=== PATIENT | male | born 1955 | race Caucasian/White ===

== ENCOUNTER 2016-04-07 14:55 | Emergency (ER) | payer OTHER ==
[~2016-04-07] VITALS: Ht 185.4 cm; Wt 72.4 kg
[~2016-04-07 14:55] MED LIST: ALPRAZOLAM0.25 M2 PO; AMIODARONE HCL200 MG PO; AMPICILLIN TRI500 MG PO; ASPIR 8181 M1 PO; ASPIR-LOW81 MG PO; ASPIR-TRIN325 M1 PO; ASPIRIN325 MG PO; ASPIRIN81 M1 PO; BACLOFEN20 MG PO; BACTRIM,SEPT1 TABLET PO; BAYER ASPIRIN325 MG PO; BENTYL10 MG PO; BENTYL20 MG PO; CARISOPRODOL350 MG PO; CARVEDILOL3.125 MG PO; CHILDREN'S ASPI81 M1 PO; CITRATE OF MAG296 ML PO; CORDARONE200 MG PO; COREG3.125 M1 PO; COREG6.25 M1 PO; COUMADIN,JANTOVE1 MG PO; COUMADIN5 MG PO; Coreg PO; DICLOFENAC SODI75 MG PO; DOXEPIN HCL100 MG PO; DOXEPIN HCL25 MG PO; DOXEPIN HCL75 MG PO; Doxycycline PO; EFFIENT10 MG PO; ENDOCET 5-3251 EAC1 PO; EX-LAX MAXIMUM25 MG PO; FLEET ENEMA-AD118 ML PR; FLEXERIL10 MG PO; FLOMAX0.4 M1 PO; FLOMAX0.4 MG PO; FOLIC ACID1 MG PO; FUROSEMIDE20 MG PO; FUROSEMIDE40 MG PO; GABAPENTIN100 MG PO; HYDROCODON-ACE1 EACH PO; Habitrol,Nicoderm CQ TD; KEFLEX500 MG PO; LEVOTHROID50 MCG PO; LIPITOR80 MG PO; LISINOPRIL10 MG PO; LISINOPRIL2.5 MG PO; LO-DOSE ASPIRIN81 M1 PO; LOVENOX80 MG/0.8 SC; Levothroid,Synthroid PO; MEDROL DOSEPAK4 MG PO; MELOXICAM7.5 MG PO; METOPROLOL SUCC25 MG PO; MIRTAZAPINE15 MG PO; MS CONTIN,ORAMO30 M1 PO; NAPROSYN500 MG PO; NAPROXEN500 MG PO; NITROSTAT0.4 MG SL; NOHOMEMEDS; NORTRIPTYLINE H50 MG PO; OMEPRAZOLE40 M1 PO; OXYCODONE HCL10 MG PO; OXYCODONE HCL15 MG PO; OXYCODONE-APAP1 EACH PO; PACERONE200 M1 PO; PAROXETINE HCL20 MG PO; PAXIL20 MG PO; PERCOCET 10/1 TABLET PO; PERCOCET 5/31 TABLET PO; PLAVIX75 MG PO; PRAVASTATIN SOD40 MG PO; PREVACID30 MG PO; PROAIR HFA8.5 GM IH; PROMETHAZINE HC25 M1 PO; PROTONIX40 MG PO; PROVENTIL HFA6.7 GM IH; QUETIAPINE FUMA50 MG PO; RISPERDAL4 MG PO; SAVELLA50 MG PO; SENNA8.6 MG PO; SEROQUEL XR150 MG PO; SEROQUEL100 MG PO; SEROQUEL50 MG PO; SINEQUAN100 MG PO; SINEQUAN75 MG PO; SOMA350 MG PO; SPIRIVA1 INHALATI IH; SPIRONOLACTONE25 MG PO; ST. JOSEPH ASPI81 MG PO; SYNTHROID100 MCG PO; TIROSINT75 MCG PO; TIZANIDINE HCL2 M1 PO; TRAMADOL HCL50 MG PO; TYLENOL WITH C1 EACH PO; ULTRAM50 MG PO; VALIUM2 MG PO; VALIUM5 MG PO; VIBRAMYCIN100 MG PO; VITAMIN B-1100 MG PO; VOLTAREN75 MG PO; Vantin PO; XANAX0.25 MG PO; ZOFRAN4 MG PO; Zestril,Prinivil PO
[2016-04-07 15:06] VITALS: BP 148/85
[2016-04-07] MEDS ORDERED: VALIUM5 MG PO (18:37)
[2016-04-07] MEDS ORDERED: PREDNISONE10 MG PO (18:37)
== END 2016-04-07 18:52 | disposition home or self-care (01) ==
LOC: EXP 14:55 → EME 14:55 → EXP 18:52
DX: M54.6 Pain in thoracic spine (principal); M62.838 Other muscle spasm; Y99.0 Civilian activity done for income or pay; F17.200 Nicotine dependence, unspecified, uncomplicated
CPT/HCPCS: 72070; 99281; 99284; J7512

== ENCOUNTER 2016-04-21 11:02 | Emergency (ER) | payer OTHER ==
[~2016-04-21] VITALS: Ht 185.4 cm; Wt 72.0 kg
[~2016-04-21 11:02] MED LIST changes: +PREDNISONE10 MG PO
[2016-04-21 11:35] LABS: MCH 30.5 PG (29.0-34.0); MCHC 33.7 G/DL (30.0-36.0); MCV 90.5 FL (86-99); PLATELET COUNT 254 K/uL (156-360); RBC DIS.WIDTH-CV 14.9 % (11.8-14.6); RBC DIS.WIDTH-SD 48.2 % (39-53); RED BLOOD COUNT 4.53 M/uL (4.00-5.50); WHITE BLOOD COUNT 6.9 K/uL (4.1-10.2)
[2016-04-21 11:45] LABS: CHLORIDE 99 mEq/L (99-109); POTASSIUM 3.8 mEq/L (3.7-5.4); SODIUM 139 mEq/L (136-147)
[2016-04-21 11:47] LABS: GLUCOSE 132 mg/dL (70-99)
[2016-04-21 11:48] LABS: ANION GAP 12 MEQ/L (2-14)
[2016-04-21 11:51] LABS: GFR ESTIMATE (CALCULATED) > 59 mL/min/
[2016-04-21 11:52] LABS: UREA NITROGEN (BUN) 4 mg/dL (9-23)
[2016-04-21 12:57] LABS: ADD MIUA? YES; BILIRUBIN NEGATIVE; BLOOD NEGATIVE; COLOR YELLOW ((YELLOW)); GLUCOSE (STRIP) NEGATIVE; KETONES NEGATIVE; LEUKOCYTES NEGATIVE; NITRITE NEGATIVE; PH, URINE 8.5 (5-8); PROTEIN (STRIP) TRACE; SPECIFIC GRAVITY 1.015 (1.000-1.030); UROBILINOGEN 0.2 MG/DL (0.2-1.0)
[2016-04-21] MEDS ORDERED: OXYCODONE HCL15 MG PO (13:17)
[2016-04-21 13:19] LABS: BACTERIA NONE SEEN; CASTS NONE SEEN /LPF; CRYSTALS PRESENT; EPITHELIAL CELLS RARE; MUCUS NONE SEEN; RED BLOOD CELLS NONE SEEN /HPF (0-5); UCUL ADDED? NO; WHITE BLOOD CELLS NONE SEEN /HPF (0-5)
[2016-04-21 13:20] LABS: AMORPHOUS PHOSPHATE CRYSTALS 2+
[2016-04-21] MEDS ORDERED: BACTRIM,SEPT1 TABLET PO (13:37)
[2016-04-21 13:53] VITALS: BP 127/69
== END 2016-04-21 14:18 | disposition home or self-care (01) ==
LOC: EME 11:02
DX: N30.00 Acute cystitis without hematuria (principal); I10 Essential (primary) hypertension; I25.2 Old myocardial infarction; N18.6 End stage renal disease; F17.200 Nicotine dependence, unspecified, uncomplicated; Z87.442 Personal history of urinary calculi; Z86.73 Personal history of transient ischemic attack (TIA), and cerebral infarction without residual deficits; Z95.5 Presence of coronary angioplasty implant and graft; Z88.6 Allergy status to analgesic agent
CPT/HCPCS: 74176; 80048; 81003; 85027; 99281; 99284; J2270; J7030

== ENCOUNTER 2016-04-26 20:27 | Inpatient (IN) | payer OTHER ==
[~2016-04-26] VITALS: Ht 185.4 cm; Wt 70.9 kg
[2016-04-26 21:47] LABS: HEMATOCRIT 39.8 % (38.0-50.0); MCH 30.7 PG (29.0-34.0); MCHC 33.7 G/DL (30.0-36.0); MCV 91.1 FL (86-99); MEAN PLAT.VOLUME 9.8 uM^3 (9.0-12.4); PLATELET COUNT 190 K/uL (156-360); RBC DIS.WIDTH-CV 14.7 % (11.8-14.6); RBC DIS.WIDTH-SD 47.8 % (39-53); RED BLOOD COUNT 4.37 M/uL (4.00-5.50); WHITE BLOOD COUNT 7.3 K/uL (4.1-10.2)
[2016-04-26 21:55] LABS: CHLORIDE 107 mEq/L (99-109); POTASSIUM 4.1 mEq/L (3.7-5.4); SODIUM 141 mEq/L (136-147)
[2016-04-26 21:57] LABS: GLUCOSE 83 mg/dL (70-99)
[2016-04-26 21:58] LABS: ANION GAP 10 MEQ/L (2-14)
[2016-04-26 22:00] LABS: SERUM ETHYL ALCOHOL < 10 mg/dL
[2016-04-26 22:01] LABS: GFR ESTIMATE (CALCULATED) > 59 mL/min/
[2016-04-26 22:03] LABS: UREA NITROGEN (BUN) 11 mg/dL (9-23)
[2016-04-26 22:04] LABS: SALICYLATE < 5.0 MG/DL (15-30)
[2016-04-26 22:07] LABS: TROP-I INTERPRETATION NEGATIVE; TROPONIN-I < 0.01 ng/mL (0.0-0.30)
[2016-04-26 23:00] LABS: ADD MIUA? NO; BILIRUBIN NEGATIVE; BLOOD NEGATIVE; COLOR YELLOW ((YELLOW)); GLUCOSE (STRIP) NEGATIVE; KETONES NEGATIVE; LEUKOCYTES NEGATIVE; NITRITE NEGATIVE; PROTEIN (STRIP) NEGATIVE; SPECIFIC GRAVITY 1.012 (1.000-1.030); UROBILINOGEN 0.2 MG/DL (0.2-1.0)
[2016-04-26 23:13] LABS: ADD MEDTOX COMMENT Y; AMPHETAMINE NEGATIVE (500 ng/mL); BARBITURATES NEGATIVE (200 ng/mL); BENZODIAZEPINES PRESUMPTIVE POSITIVE (150 ng/mL); COCAINE NEGATIVE (150 ng/mL); INTERNAL CONTROLS VALID? YES; METHADONE NEGATIVE (200 ng/mL); METHAMPHETAMINE NEGATIVE (500 ng/mL); OPIATES (MORPHINE) NEGATIVE (100 ng/mL); OXYCODONE PRESUMPTIVE POSITIVE (100 ng/mL); PHENCYCLIDINE NEGATIVE (25 ng/mL); PROPOXYPHENE NEGATIVE (300 ng/mL); THC CANNABINOIDS NEGATIVE (50 ng/mL); TRICYCLIC ANTIDEPRESSANTS NEGATIVE (300 ng/mL)
[2016-04-26 23:23] LABS: TOTAL BILIRUBIN 0.2 mg/dL (0.0-1.0)
[2016-04-26 23:24] LABS: ALKALINE PHOSPHATASE 94 IU/L (3-129)
[2016-04-26] MEDS ORDERED: K-DUR20 MEQ PO (23:25)
[2016-04-26] MEDS ORDERED: DILAUDID2 MG PO (23:25)
[2016-04-26] MEDS ORDERED: MUPIROCIN15 GM TP (23:26)
[2016-04-26 23:27] LABS: DIRECT BILIRUBIN 0.1 mg/dL (0.0-0.3)
[2016-04-26 23:28] LABS: LIPASE 20 U/L (1.0-51.0)
[2016-04-26] MEDS ORDERED: LASIX20 MG PO (23:29)
[2016-04-26 23:54] LABS: BENZODIAZEPINES QUANT VALUE 0 NG/ML
[2016-04-26 23:55] LABS: BENZODIAZEPINES, URINE SCREEN Negative (200 ng/mL)
[2016-04-27 04:29] LABS: TROP-I INTERPRETATION NEGATIVE; TROPONIN-I < 0.01 ng/mL (0.0-0.30)
[2016-04-27 04:45] LABS: HDL CHOLESTEROL 38 MG/DL (Desirable>=40); LDL CHOLESTEROL 66 mg/dL (Desirable<100); NON-HDL CHOLESTEROL 79 mg/dL (Desirable<160); TOTAL CHOLESTEROL 117 mg/dL (Desirable<200); TRIGLYCERIDES 64 MG/DL (Normal: <150)
[2016-04-27 07:51] VITALS: BP 115/93
[2016-04-27 08:21] LABS: Estimated Average Glucose 108 mg/dL (70-123); HEMOGLOBIN A1c (GLYCOHEMOGLOB) 5.4 % HGB (Below 5.7)
== END 2016-04-27 07:51 | disposition left against medical advice (07) | DRG 71 ==
LOC: EME → EDBD 20:27 → EME 20:27 → EDOF 04-27 00:16
PROVIDERS: Emergency Medicine; Family Medicine
DX: G93.40 Encephalopathy, unspecified (principal); R55 Syncope and collapse; N30.00 Acute cystitis without hematuria; R41.82 Altered mental status, unspecified; F17.200 Nicotine dependence, unspecified, uncomplicated; J44.9 Chronic obstructive pulmonary disease, unspecified; R51 Headache; I25.10 Atherosclerotic heart disease of native coronary artery without angina pectoris; E78.5 Hyperlipidemia, unspecified; I25.2 Old myocardial infarction; G89.29 Other chronic pain; F32.9 Major depressive disorder, single episode, unspecified; Z95.5 Presence of coronary angioplasty implant and graft; Z95.810 Presence of automatic (implantable) cardiac defibrillator; Z88.8 Allergy status to other drugs, medicaments and biological substances; Z86.19 Personal history of other infectious and parasitic diseases; Z86.73 Personal history of transient ischemic attack (TIA), and cerebral infarction without residual deficits
CPT/HCPCS: 70450; 71010; 73552; 80048; 80061; 80076; 81003; 83036; 83605; 83690; 83880; 84484; 84999; 85027; 87040; 87086; 93005; 93880; 99281; 99285; G0480; J0696; J7030; J7050

== ENCOUNTER 2016-06-13 09:54 | Emergency (ER) | payer OTHER ==
[~2016-06-13] VITALS: Ht 185.4 cm; Wt 68.9 kg
[~2016-06-13 09:54] MED LIST changes: +DILAUDID2 MG PO; +K-DUR20 MEQ PO; +LASIX20 MG PO; +MUPIROCIN15 GM TP
[2016-06-13] MEDS ORDERED: BACLOFEN10 MG PO (13:36)
[2016-06-13] MEDS ORDERED: MEDROL DOSEPAK4 MG PO (13:36)
[2016-06-13] MEDS ORDERED: LORTAB 5-325 M1 EACH PO (13:36)
[2016-06-13 14:30] VITALS: BP 144/82
== END 2016-06-13 14:32 | disposition home or self-care (01) ==
LOC: EME 09:54
DX: S29.9XXA Unspecified injury of thorax, initial encounter (principal); M54.2 Cervicalgia; R10.9 Unspecified abdominal pain; W55.19XA Other contact with horse, initial encounter; I25.2 Old myocardial infarction; Z98.61 Coronary angioplasty status
CPT/HCPCS: 72125; 72128; 99281; 99284; J1100; J1885; J3360

== ENCOUNTER 2016-07-05 16:25 | Emergency (ER) | payer OTHER ==
[~2016-07-05] VITALS: Ht 185.4 cm; Wt 68.0 kg
[~2016-07-05 16:25] MED LIST changes: +BACLOFEN10 MG PO; +LORTAB 5-325 M1 EACH PO
[2016-07-05 18:15] VITALS: BP 116/67
[2016-07-05] MEDS ORDERED: MOTRIN800 MG PO (18:15)
== END 2016-07-05 18:32 | disposition home or self-care (01) ==
LOC: EME 16:25
DX: S80.01XA Contusion of right knee, initial encounter (principal); W10.8XXA Fall (on) (from) other stairs and steps, initial encounter; Y93.89 Activity, other specified; I25.2 Old myocardial infarction; Z95.810 Presence of automatic (implantable) cardiac defibrillator; Z72.0 Tobacco use
CPT/HCPCS: 73564; 99281; 99284; J1885

== ENCOUNTER 2016-07-21 12:00 | Emergency (ER) | payer OTHER ==
[~2016-07-21] VITALS: Ht 185.4 cm; Wt 69.2 kg
[~2016-07-21 12:00] MED LIST changes: +MOTRIN800 MG PO
[2016-07-21 12:07] VITALS: BP 111/69
[2016-07-21] MEDS ORDERED: NAPROSYN500 MG PO (13:58)
[2016-07-21] MEDS ORDERED: LIDODERM 5% P1 PATCH TD (13:58)
[2016-07-21] MEDS ORDERED: TRAMADOL HCL50 MG PO (13:58)
[2016-07-21] MEDS ORDERED: BACLOFEN10 MG PO (13:58)
== END 2016-07-21 14:08 | disposition home or self-care (01) ==
LOC: EME 12:00
DX: S29.9XXA Unspecified injury of thorax, initial encounter (principal); M54.9 Dorsalgia, unspecified; M54.2 Cervicalgia; G89.29 Other chronic pain; X50.0XXA Overexertion from strenuous movement or load, initial encounter; W10.9XXA Fall (on) (from) unspecified stairs and steps, initial encounter; Y93.89 Activity, other specified; F17.200 Nicotine dependence, unspecified, uncomplicated
CPT/HCPCS: 99281; 99284; J1885

== ENCOUNTER 2016-08-07 08:39 | Emergency (ER) | payer OTHER ==
[~2016-08-07] VITALS: Ht 185.4 cm; Wt 68.6 kg
[~2016-08-07 08:39] MED LIST changes: +LIDODERM 5% P1 PATCH TD
[2016-08-07] MEDS ORDERED: SOMA350 MG PO (08:56)
[2016-08-07] MEDS ORDERED: LASIX40 MG PO (08:56)
[2016-08-07] MEDS ORDERED: PERCOCET 5/31 TABLET PO (13:16)
[2016-08-07 14:07] VITALS: BP 125/76
== END 2016-08-07 14:21 | disposition home or self-care (01) ==
LOC: EME → EDBD 08:39 → EME 08:39
DX: S72.115A Nondisplaced fracture of greater trochanter of left femur, initial encounter for closed fracture (principal); W10.9XXA Fall (on) (from) unspecified stairs and steps, initial encounter; I48.91 Unspecified atrial fibrillation; J45.909 Unspecified asthma, uncomplicated; F32.9 Major depressive disorder, single episode, unspecified; J44.9 Chronic obstructive pulmonary disease, unspecified; I11.0 Hypertensive heart disease with heart failure; I50.9 Heart failure, unspecified; G43.909 Migraine, unspecified, not intractable, without status migrainosus; I25.2 Old myocardial infarction; Z86.73 Personal history of transient ischemic attack (TIA), and cerebral infarction without residual deficits; G89.29 Other chronic pain; M54.9 Dorsalgia, unspecified; Z95.5 Presence of coronary angioplasty implant and graft; Z95.810 Presence of automatic (implantable) cardiac defibrillator; F17.200 Nicotine dependence, unspecified, uncomplicated; M25.562 Pain in left knee
CPT/HCPCS: 73502; 73564; 73700; 99281; 99284; G8987 GO CI; G8988 GO CH; J1885

== ENCOUNTER 2016-08-13 11:19 | Emergency (ER) | payer OTHER ==
[~2016-08-13] VITALS: Ht 185.4 cm; Wt 70.1 kg
[~2016-08-13 11:19] MED LIST changes: +LASIX40 MG PO
[2016-08-13] MEDS ORDERED: PERCOCET 5/31 TABLET PO (13:22)
[2016-08-13 13:31] VITALS: BP 120/76
== END 2016-08-13 13:33 | disposition home or self-care (01) ==
LOC: EME 11:19
DX: S72.115A Nondisplaced fracture of greater trochanter of left femur, initial encounter for closed fracture (principal); W10.9XXA Fall (on) (from) unspecified stairs and steps, initial encounter; F17.200 Nicotine dependence, unspecified, uncomplicated; Z95.810 Presence of automatic (implantable) cardiac defibrillator; Z95.5 Presence of coronary angioplasty implant and graft; J45.909 Unspecified asthma, uncomplicated; I12.0 Hypertensive chronic kidney disease with stage 5 chronic kidney disease or end stage renal disease; I25.2 Old myocardial infarction; Z86.73 Personal history of transient ischemic attack (TIA), and cerebral infarction without residual deficits; Z86.74 Personal history of sudden cardiac arrest; B18.2 Chronic viral hepatitis C; Z88.5 Allergy status to narcotic agent
CPT/HCPCS: 73502; 73564; 99281; 99284; J3010

== ENCOUNTER 2016-09-14 10:21 | Emergency (ER) | payer OTHER ==
[~2016-09-14] VITALS: Ht 185.4 cm; Wt 66.5 kg
[2016-09-14] MEDS ORDERED: VOLTAREN50 MG PO (12:58)
[2016-09-14 13:22] VITALS: BP 115/72
== END 2016-09-14 13:25 | disposition home or self-care (01) ==
LOC: EXP 10:21 → EME 10:21 → EXP 13:25
DX: S83.92XA Sprain of unspecified site of left knee, initial encounter (principal); W20.8XXA Other cause of strike by thrown, projected or falling object, initial encounter; W18.00XA Striking against unspecified object with subsequent fall, initial encounter; Y99.0 Civilian activity done for income or pay; G89.29 Other chronic pain; F17.200 Nicotine dependence, unspecified, uncomplicated
CPT/HCPCS: 73564; 99281; 99283

== ENCOUNTER 2016-11-20 16:12 | Emergency (ER) | payer OTHER ==
[~2016-11-20] VITALS: Ht 177.8 cm; Wt 70.0 kg
[~2016-11-20 16:12] MED LIST changes: +VOLTAREN50 MG PO
[2016-11-20 16:47] LABS: POINT-OF-CARE METER ID UU13113702
[2016-11-20 17:13] LABS: HEMATOCRIT 38.1 % (38.0-50.0); MCH 31.9 PG (29.0-34.0); MCHC 33.1 G/DL (30.0-36.0); MCV 96.5 FL (86-99); MEAN PLAT.VOLUME 10.5 uM^3 (9.0-12.4); PLATELET COUNT 107 K/uL (156-360); RBC DIS.WIDTH-CV 13.5 % (11.8-14.6); RBC DIS.WIDTH-SD 48.5 % (39-53); RED BLOOD COUNT 3.95 M/uL (4.00-5.50)
[2016-11-20 17:25] LABS: CHLORIDE 105 mEq/L (99-109); POTASSIUM 3.6 mEq/L (3.7-5.4); SODIUM 140 mEq/L (136-147)
[2016-11-20 17:26] LABS: GLUCOSE 80 mg/dL (70-99)
[2016-11-20 17:28] LABS: ANION GAP 12 MEQ/L (2-14)
[2016-11-20 17:30] LABS: GFR ESTIMATE (CALCULATED) > 59 mL/min/; SERUM ETHYL ALCOHOL 92 mg/dL
[2016-11-20 17:31] LABS: UREA NITROGEN (BUN) 6 mg/dL (9-23)
[2016-11-20 18:19] LABS: ADD MIUA? NO; BILIRUBIN NEGATIVE; BLOOD NEGATIVE; COLOR STRAW ((YELLOW)); GLUCOSE (STRIP) NEGATIVE; KETONES NEGATIVE; LEUKOCYTES NEGATIVE; NITRITE NEGATIVE; PROTEIN (STRIP) NEGATIVE; SPECIFIC GRAVITY 1.006 (1.000-1.030); UCUL ADDED? NO; UROBILINOGEN 0.2 MG/DL (0.2-1.0)
[2016-11-20 19:27] VITALS: BP 99/55
== END 2016-11-20 19:28 | disposition home or self-care (01) ==
LOC: EME 16:12
DX: F10.129 Alcohol abuse with intoxication, unspecified (principal); Y90.4 Blood alcohol level of 80-99 mg/100 ml; I13.2 Hypertensive heart and chronic kidney disease with heart failure and with stage 5 chronic kidney disease, or end stage renal disease; N18.6 End stage renal disease; I50.9 Heart failure, unspecified; I25.2 Old myocardial infarction; Z86.73 Personal history of transient ischemic attack (TIA), and cerebral infarction without residual deficits; Z95.5 Presence of coronary angioplasty implant and graft; Z95.810 Presence of automatic (implantable) cardiac defibrillator; Z86.74 Personal history of sudden cardiac arrest; Z87.442 Personal history of urinary calculi; F17.200 Nicotine dependence, unspecified, uncomplicated; Z88.6 Allergy status to analgesic agent
CPT/HCPCS: 71010; 80048; 81003; 82948; 85027; 93005; 99281; 99284; G0480

== ENCOUNTER 2016-12-04 12:08 | Observation (INO) | payer OTHER ==
[~2016-12-04] VITALS: Ht 185.4 cm; Wt 68.0 kg
[2016-12-04 12:40] LABS: HEMATOCRIT 43.7 % (38.0-50.0); MCH 31.7 PG (29.0-34.0); MCHC 33.2 G/DL (30.0-36.0); MCV 95.6 FL (86-99); MEAN PLAT.VOLUME 10.2 uM^3 (9.0-12.4); RBC DIS.WIDTH-CV 13.9 % (11.8-14.6); RBC DIS.WIDTH-SD 48.4 % (39-53); RED BLOOD COUNT 4.57 M/uL (4.00-5.50); WHITE BLOOD COUNT 9.8 K/uL (4.1-10.2)
[2016-12-04 12:41] LABS: PLATELET COUNT 184 K/uL (156-360)
[2016-12-04 12:48] LABS: PTT 30.5 SEC (25-37)
[2016-12-04 13:01] LABS: TROP-I INTERPRETATION NEGATIVE; TROPONIN-I 0.01 ng/mL (0.0-0.30)
[2016-12-04 13:14] LABS: CHLORIDE 105 mEq/L (99-109); POTASSIUM 3.9 mEq/L (3.7-5.4); SODIUM 141 mEq/L (136-147)
[2016-12-04 13:15] LABS: GLUCOSE 94 mg/dL (70-99)
[2016-12-04 13:17] LABS: ANION GAP 8 MEQ/L (2-14)
[2016-12-04 13:19] LABS: GFR ESTIMATE (CALCULATED) > 59 mL/min/
[2016-12-04 13:20] LABS: UREA NITROGEN (BUN) 10 mg/dL (9-23)
[2016-12-04] MEDS ORDERED: OXYCODONE HCL15 MG PO (14:24)
[2016-12-04] MEDS ORDERED: ELAVIL25 MG PO (14:25)
[2016-12-04 15:57] VITALS: BP 136/70
[2016-12-04 19:50] LABS: TROP-I INTERPRETATION NEGATIVE; TROPONIN-I < 0.01 ng/mL (0.0-0.30)
[2016-12-04 20:40] VITALS: BP 111/65
[2016-12-04 21:58] LABS: METH RESISTANT S AUREUS PCR NEGATIVE (NEGATIVE)
[2016-12-04 22:08] LABS: PROBE CHECK PASS; SPECIMEN PROCESSING CONTROL PASS
[2016-12-05 00:22] VITALS: BP 122/77
[2016-12-05 02:12] LABS: TROP-I INTERPRETATION NEGATIVE; TROPONIN-I 0.02 ng/mL (0.0-0.30)
[2016-12-05 10:36] VITALS: BP 122/62
[2016-12-05 12:44] VITALS: BP 122/62
[2016-12-05] MEDS ORDERED: ASPIR 8181 M1 PO (14:51)
== END 2016-12-05 15:42 | disposition home or self-care (01) ==
LOC: EME 12:08 → EDOF 13:54 → 5WEST 13:54 → ENRESERV 14:05 → 5WEST 15:00
PROVIDERS: Emergency Medicine; Hospitalist; Internal Medicine
DX: R07.89 Other chest pain (principal); I25.2 Old myocardial infarction; J44.9 Chronic obstructive pulmonary disease, unspecified; G89.29 Other chronic pain; F10.20 Alcohol dependence, uncomplicated; F17.210 Nicotine dependence, cigarettes, uncomplicated; B19.20 Unspecified viral hepatitis C without hepatic coma; I10 Essential (primary) hypertension; I25.10 Atherosclerotic heart disease of native coronary artery without angina pectoris; I25.5 Ischemic cardiomyopathy; Z95.810 Presence of automatic (implantable) cardiac defibrillator; Z95.5 Presence of coronary angioplasty implant and graft; Z86.73 Personal history of transient ischemic attack (TIA), and cerebral infarction without residual deficits; Z79.891 Long term (current) use of opiate analgesic; E78.5 Hyperlipidemia, unspecified; Z86.74 Personal history of sudden cardiac arrest
CPT/HCPCS: 71020; 71275; 80048; 83880; 84484; 85027; 85379; 85610; 85730; 87641; 93005; 99202; 99281; 99285; G0378; J1650; J1940; J2270

== ENCOUNTER 2016-12-09 23:22 | Observation (INO) | payer OTHER ==
[~2016-12-09] VITALS: Ht 185.4 cm; Wt 65.4 kg
[~2016-12-09 23:22] MED LIST changes: +ELAVIL25 MG PO
[2016-12-09 23:44] LABS: HEMATOCRIT 44.7 % (38.0-50.0); MCH 31.6 PG (29.0-34.0); MCHC 33.3 G/DL (30.0-36.0); MCV 94.9 FL (86-99); MEAN PLAT.VOLUME 9.6 uM^3 (9.0-12.4); PLATELET COUNT 245 K/uL (156-360); RBC DIS.WIDTH-CV 13.4 % (11.8-14.6); RBC DIS.WIDTH-SD 47.1 % (39-53); RED BLOOD COUNT 4.71 M/uL (4.00-5.50); WHITE BLOOD COUNT 10.5 K/uL (4.1-10.2)
[2016-12-09 23:48] LABS: CHLORIDE 106 mEq/L (99-109); POTASSIUM 4.1 mEq/L (3.7-5.4); SODIUM 142 mEq/L (136-147)
[2016-12-09 23:50] LABS: GLUCOSE 105 mg/dL (70-99)
[2016-12-09 23:51] LABS: ANION GAP 12 MEQ/L (2-14)
[2016-12-09 23:54] LABS: GFR ESTIMATE (CALCULATED) > 59 mL/min/
[2016-12-09 23:55] LABS: UREA NITROGEN (BUN) 8 mg/dL (9-23)
[2016-12-10 00:02] LABS: TROP-I INTERPRETATION NEGATIVE; TROPONIN-I < 0.01 ng/mL (0.0-0.30)
[2016-12-10] MEDS ORDERED: ASPIR 8181 M1 PO (00:35)
[2016-12-10 02:41] LABS: TOTAL BILIRUBIN 0.4 mg/dL (0.0-1.0)
[2016-12-10 02:42] LABS: ALKALINE PHOSPHATASE 113 IU/L (3-129)
[2016-12-10 02:44] LABS: DIRECT BILIRUBIN 0.2 mg/dL (0.0-0.3)
[2016-12-10 02:45] LABS: LIPASE 17 U/L (1.0-51.0)
[2016-12-10 02:59] VITALS: BP 141/69
[2016-12-10 07:04] LABS: TROP-I INTERPRETATION NEGATIVE; TROPONIN-I < 0.01 ng/mL (0.0-0.30)
[2016-12-10 09:09] VITALS: BP 129/80
[2016-12-10 12:20] LABS: TROP-I INTERPRETATION NEGATIVE; TROPONIN-I < 0.01 ng/mL (0.0-0.30)
[2016-12-10 12:34] VITALS: BP 113/66
== END 2016-12-10 15:59 | disposition home or self-care (01) ==
LOC: EME → EDBD 23:22 → EME 23:22 → EDOF 12-10 02:10 → ENRESERV 12-10 02:11 → 5WEST 12-10 02:44
PROVIDERS: Hospitalist
DX: R07.89 Other chest pain (principal); G89.29 Other chronic pain; M54.2 Cervicalgia; I25.5 Ischemic cardiomyopathy; I25.10 Atherosclerotic heart disease of native coronary artery without angina pectoris; Z95.810 Presence of automatic (implantable) cardiac defibrillator; F19.10 Other psychoactive substance abuse, uncomplicated; B19.20 Unspecified viral hepatitis C without hepatic coma; I25.2 Old myocardial infarction; F11.20 Opioid dependence, uncomplicated; Z95.5 Presence of coronary angioplasty implant and graft; Z86.73 Personal history of transient ischemic attack (TIA), and cerebral infarction without residual deficits; J44.9 Chronic obstructive pulmonary disease, unspecified; I13.2 Hypertensive heart and chronic kidney disease with heart failure and with stage 5 chronic kidney disease, or end stage renal disease; N18.6 End stage renal disease; I50.9 Heart failure, unspecified; F17.200 Nicotine dependence, unspecified, uncomplicated; F32.9 Major depressive disorder, single episode, unspecified; Z86.74 Personal history of sudden cardiac arrest; N40.0 Benign prostatic hyperplasia without lower urinary tract symptoms; Z87.820 Personal history of traumatic brain injury
CPT/HCPCS: 71020; 80048; 80076; 83690; 84484; 85027; 93005; 94640; 99281; 99285; G0378; J1885; J2060; J3010; J7050

== ENCOUNTER 2016-12-14 12:06 | Emergency (ER) | payer OTHER ==
[~2016-12-14] VITALS: Ht 195.6 cm; Wt 67.2 kg
[2016-12-14 13:20] LABS: HEMATOCRIT 44.4 % (38.0-50.0); MCH 31.7 PG (29.0-34.0); MCHC 33.8 G/DL (30.0-36.0); MCV 93.9 FL (86-99); MEAN PLAT.VOLUME 9.6 uM^3 (9.0-12.4); PLATELET COUNT 271 K/uL (156-360); RBC DIS.WIDTH-CV 13.5 % (11.8-14.6); RBC DIS.WIDTH-SD 46.8 % (39-53); RED BLOOD COUNT 4.73 M/uL (4.00-5.50)
[2016-12-14 13:34] LABS: CHLORIDE 106 mEq/L (99-109); GLUCOSE 95 mg/dL (70-99); POTASSIUM 4.2 mEq/L (3.7-5.4); SODIUM 141 mEq/L (136-147)
[2016-12-14 13:35] LABS: ANION GAP 14 MEQ/L (2-14)
[2016-12-14 13:38] LABS: GFR ESTIMATE (CALCULATED) > 59 mL/min/
[2016-12-14 13:39] LABS: UREA NITROGEN (BUN) 11 mg/dL (9-23)
[2016-12-14 13:42] LABS: TROP-I INTERPRETATION NEGATIVE; TROPONIN-I < 0.01 ng/mL (0.0-0.30)
[2016-12-14 13:49] LABS: D-DIMER ELISA < 150.00 ng/mLDDU (<230)
[2016-12-14 13:56] VITALS: BP 131/84
== END 2016-12-14 13:57 | disposition left against medical advice (07) ==
LOC: EME 12:06
DX: R07.2 Precordial pain (principal); J44.9 Chronic obstructive pulmonary disease, unspecified; I13.2 Hypertensive heart and chronic kidney disease with heart failure and with stage 5 chronic kidney disease, or end stage renal disease; I50.9 Heart failure, unspecified; N18.6 End stage renal disease; I25.2 Old myocardial infarction; Z95.5 Presence of coronary angioplasty implant and graft; Z95.810 Presence of automatic (implantable) cardiac defibrillator; F32.9 Major depressive disorder, single episode, unspecified; N40.0 Benign prostatic hyperplasia without lower urinary tract symptoms; M06.9 Rheumatoid arthritis, unspecified; F17.210 Nicotine dependence, cigarettes, uncomplicated; F19.10 Other psychoactive substance abuse, uncomplicated; F10.10 Alcohol abuse, uncomplicated; Z86.73 Personal history of transient ischemic attack (TIA), and cerebral infarction without residual deficits; Z87.442 Personal history of urinary calculi; Z86.74 Personal history of sudden cardiac arrest
CPT/HCPCS: 71020; 80048; 83880; 84484; 85027; 85379; 93005; 99281; 99284

== ENCOUNTER 2016-12-17 18:39 | Observation (INO) | payer OTHER ==
[~2016-12-17] VITALS: Ht 185.4 cm; Wt 67.9 kg
[2016-12-17 19:08] LABS: EOSINOPHIL (%) 0.1 % (0-5); HEMATOCRIT 40.4 % (38.0-50.0); IMMATURE GRANULOCYTE (%) 0.4 % (0.0-0.7); IMMATURE GRANULOCYTE COUNT 0.1 K/uL; INSTRUMENT ABS NEUTROPHIL CT 10.2 K/uL; LYMPHOCYTE COUNT 2.1 K/uL (1.0-2.8); MCHC 33.9 G/DL (30.0-36.0); MCV 94.4 FL (86-99); MEAN PLAT.VOLUME 9.5 uM^3 (9.0-12.4); MONOCYTE (%) 3.4 % (3-12); MONOCYTE COUNT 0.4 K/uL (0-0.8); NEUTROPHIL (%) 79.4 % (45-76); NEUTROPHIL COUNT 10.2 K/uL (1.8-6.4); PLATELET COUNT 219 K/uL (156-360); RBC DIS.WIDTH-CV 13.5 % (11.8-14.6); RBC DIS.WIDTH-SD 46.5 % (39-53); RED BLOOD COUNT 4.28 M/uL (4.00-5.50); WHITE BLOOD COUNT 12.8 K/uL (4.1-10.2)
[2016-12-17 19:20] LABS: CHLORIDE 103 mEq/L (99-109); POTASSIUM 3.4 mEq/L (3.7-5.4); SODIUM 139 mEq/L (136-147)
[2016-12-17 19:21] LABS: GLUCOSE 93 mg/dL (70-99)
[2016-12-17 19:23] LABS: ANION GAP 18 MEQ/L (2-14)
[2016-12-17 19:25] LABS: GFR ESTIMATE (CALCULATED) > 59 mL/min/
[2016-12-17 19:26] LABS: UREA NITROGEN (BUN) 13 mg/dL (9-23)
[2016-12-17 19:30] LABS: TROP-I INTERPRETATION NEGATIVE; TROPONIN-I < 0.01 ng/mL (0.0-0.30)
[2016-12-17] MEDS ORDERED: PROAIR HFA8.5 GM IH (21:44)
[2016-12-18] VITALS: BP 120/63
[2016-12-18 01:12] LABS: TROP-I INTERPRETATION NEGATIVE; TROPONIN-I < 0.01 ng/mL (0.0-0.30)
[2016-12-18 01:46] LABS: METH RESISTANT S AUREUS PCR NEGATIVE (NEGATIVE)
[2016-12-18 01:58] LABS: PROBE CHECK PASS; SPECIMEN PROCESSING CONTROL PASS
[2016-12-18 04:20] VITALS: BP 105/63
[2016-12-18 05:41] LABS: HEMATOCRIT 35.5 % (38.0-50.0); MCH 31.4 PG (29.0-34.0); MCV 95.2 FL (86-99); MEAN PLAT.VOLUME 9.9 uM^3 (9.0-12.4); PLATELET COUNT 182 K/uL (156-360); RBC DIS.WIDTH-CV 13.9 % (11.8-14.6); RBC DIS.WIDTH-SD 48.7 % (39-53); RED BLOOD COUNT 3.73 M/uL (4.00-5.50); WHITE BLOOD COUNT 8.8 K/uL (4.1-10.2)
[2016-12-18 05:46] LABS: TROP-I INTERPRETATION NEGATIVE; TROPONIN-I 0.02 ng/mL (0.0-0.30)
[2016-12-18 05:54] LABS: ANION GAP 4 MEQ/L (2-14); CHLORIDE 104 MEQ/L (99-109); GFR ESTIMATE (CALCULATED) > 59 mL/min/; GLUCOSE 93 mg/dL (70-99); SAMPLE HEMOLYSIS CHECK 0; SAMPLE ICTERIC CHECK 0; SAMPLE LIPEMIA CHECK 0; SODIUM 136 MEQ/L (136-147); UREA NITROGEN (BUN) 16 mg/dL (9-23)
[2016-12-18 06:01] LABS: POTASSIUM 4.4 MEQ/L (3.7-5.4)
[2016-12-18 07:26] VITALS: BP 134/75
[2016-12-18 11:42] VITALS: BP 134/68
== END 2016-12-18 14:11 | disposition home or self-care (01) ==
LOC: EME → EDBD 18:39 → EME 18:39 → EDOF 21:23 → ENRESERV 21:24 → 5WEST 23:41
PROVIDERS: Emergency Medicine; Hospitalist
DX: R07.9 Chest pain, unspecified (principal); I25.10 Atherosclerotic heart disease of native coronary artery without angina pectoris; Z95.5 Presence of coronary angioplasty implant and graft; I25.2 Old myocardial infarction; J44.9 Chronic obstructive pulmonary disease, unspecified; M79.7 Fibromyalgia; I25.5 Ischemic cardiomyopathy; Z95.810 Presence of automatic (implantable) cardiac defibrillator; B19.20 Unspecified viral hepatitis C without hepatic coma; F17.210 Nicotine dependence, cigarettes, uncomplicated; Z86.73 Personal history of transient ischemic attack (TIA), and cerebral infarction without residual deficits; M06.9 Rheumatoid arthritis, unspecified; F32.9 Major depressive disorder, single episode, unspecified; Z87.898 Personal history of other specified conditions
CPT/HCPCS: 71010; 71275; 80048; 81003; 84484; 85025; 85027; 85651; 87040; 87070; 87205; 87641; 93005; 99202; 99281; 99285; G0378; J1650; J2270; J7040; J7120

== ENCOUNTER → 2017-01-13 | Outpatient (CLI) | payer OTHER | END | disposition home or self-care (01) | LOC: RAD 13:06 | DX: M47.812 Spondylosis without myelopathy or radiculopathy, cervical region (principal); M50.81 Other cervical disc disorders, high cervical region; M50.21 Other cervical disc displacement, high cervical region; M85.88 Other specified disorders of bone density and structure, other site; M53.82 Other specified dorsopathies, cervical region; R29.6 Repeated falls; Z98.1 Arthrodesis status; Z96.698 Presence of other orthopedic joint implants | CPT/HCPCS: 62302; 72126; 77003 ==

== ENCOUNTER 2017-03-24 07:36 | Emergency (ER) | payer OTHER ==
[~2017-03-24] VITALS: Ht 182.9 cm; Wt 66.8 kg
[2017-03-24] MEDS ORDERED: OXAYDO5 MG PO (08:50)
[2017-03-24 09:15] VITALS: BP 116/72
== END 2017-03-24 09:16 | disposition home or self-care (01) ==
LOC: EME 07:36
DX: M25.561 Pain in right knee (principal); G89.29 Other chronic pain; F03.90 Unspecified dementia, unspecified severity, without behavioral disturbance, psychotic disturbance, mood disturbance, and anxiety; I13.2 Hypertensive heart and chronic kidney disease with heart failure and with stage 5 chronic kidney disease, or end stage renal disease; I50.9 Heart failure, unspecified; N18.6 End stage renal disease; J44.9 Chronic obstructive pulmonary disease, unspecified; I25.2 Old myocardial infarction; F32.9 Major depressive disorder, single episode, unspecified; N40.0 Benign prostatic hyperplasia without lower urinary tract symptoms; F17.200 Nicotine dependence, unspecified, uncomplicated; Z86.73 Personal history of transient ischemic attack (TIA), and cerebral infarction without residual deficits; Z86.74 Personal history of sudden cardiac arrest; Z95.810 Presence of automatic (implantable) cardiac defibrillator; Z95.5 Presence of coronary angioplasty implant and graft
CPT/HCPCS: 73564; 99281; 99283

== ENCOUNTER 2017-04-13 00:42 | Emergency (ER) | payer OTHER ==
[~2017-04-13] VITALS: Ht 185.4 cm; Wt 67.1 kg
[~2017-04-13 00:42] MED LIST changes: +OXAYDO5 MG PO
[2017-04-13 04:12] VITALS: BP 135/66
== END 2017-04-13 04:18 | disposition home or self-care (01) ==
LOC: EXP 00:42 → EME 00:42 → EXP 04:18
DX: S80.01XA Contusion of right knee, initial encounter (principal); W10.9XXA Fall (on) (from) unspecified stairs and steps, initial encounter; Z79.82 Long term (current) use of aspirin; F17.200 Nicotine dependence, unspecified, uncomplicated
CPT/HCPCS: 99281; 99283

== ENCOUNTER 2017-04-14 00:07 | Emergency (ER) | payer OTHER ==
[~2017-04-14] VITALS: Ht 185.4 cm; Wt 66.0 kg
[2017-04-14 00:35] LABS: BASOPHIL (%) 0.7 % (0-1); BASOPHIL COUNT 0.1 K/uL (0-0.1); EOSINOPHIL (%) 1.6 % (0-5); EOSINOPHIL COUNT 0.1 K/uL (0-0.3); HEMATOCRIT 34.9 % (38.0-50.0); HEMOGLOBIN 11.8 G/DL (12.5-16.6); IMMATURE GRANULOCYTE (%) 0.2 % (0.0-0.7); LYMPHOCYTE (%) 19.9 % (15-42); LYMPHOCYTE COUNT 1.7 K/uL (1.0-2.8); MCH 31.3 PG (29.0-34.0); MCHC 33.8 G/DL (30.0-36.0); MCV 92.6 FL (86-99); MONOCYTE (%) 10.5 % (3-12); MONOCYTE COUNT 0.9 K/uL (0-0.8); NEUTROPHIL (%) 67.1 % (45-76); NEUTROPHIL COUNT 5.7 K/uL (1.8-6.4); PLATELET COUNT 163 K/uL (156-360); RBC DIS.WIDTH-CV 13.2 % (11.8-14.6); RBC DIS.WIDTH-SD 44.3 % (39-53); RED BLOOD COUNT 3.77 M/uL (4.00-5.50); WHITE BLOOD COUNT 8.6 K/uL (4.1-10.2)
[2017-04-14 00:44] LABS: ALBUMIN 4.1 g/dL (3.2-4.8); CHLORIDE 97 mEq/L (99-109); POTASSIUM 3.7 mEq/L (3.7-5.4); SODIUM 132 mEq/L (136-147)
[2017-04-14 00:45] LABS: MAGNESIUM 1.8 mg/dL (1.3-2.7)
[2017-04-14 00:47] LABS: GLUCOSE 97 mg/dL (70-99); TOTAL PROTEIN 6.7 g/dL (6.4-8.3)
[2017-04-14 00:48] LABS: TOTAL BILIRUBIN 0.7 mg/dL (0.0-1.0)
[2017-04-14 00:50] LABS: ALKALINE PHOSPHATASE 98 IU/L (3-129); GFR ESTIMATE (CALCULATED) > 59 mL/min/ (58.99-99999)
[2017-04-14 00:51] LABS: UREA NITROGEN (BUN) 11 mg/dL (9-23)
[2017-04-14 00:52] LABS: AST (GOT) 49 IU/L (2-34)
[2017-04-14 00:53] LABS: ALT (GPT) 30 IU/L (3-49)
[2017-04-14 00:54] LABS: LIPASE 8 U/L (1.0-51.0)
[2017-04-14 00:56] LABS: TROP-I INTERPRETATION NEGATIVE; TROPONIN-I < 0.01 ng/mL (0.0-0.30)
[2017-04-14 01:31] LABS: APPEARANCE CLEAR ((CLEAR)); BILIRUBIN NEGATIVE; BLOOD SMALL; COLOR YELLOW ((YELLOW)); GLUCOSE (STRIP) NEGATIVE; KETONES 5; LEUKOCYTES NEGATIVE; NITRITE NEGATIVE; PROTEIN (STRIP) NEGATIVE; SPECIFIC GRAVITY 1.005 (1.000-1.030); UROBILINOGEN 0.2 MG/DL (0.2-1.0)
[2017-04-14 01:40] LABS: BACTERIA NONE SEEN /HPF; EPITHELIAL CELLS RARE /HPF; MUCUS NONE SEEN /LPF; RED BLOOD CELLS 0-5 /HPF (0-5); UCUL ADDED? NO; WHITE BLOOD CELLS 0-5 /HPF (0-5)
[2017-04-14 06:24] VITALS: BP 121/60
== END 2017-04-14 06:25 | disposition left against medical advice (07) ==
LOC: EME 00:07
PROVIDERS: Emergency Medicine
DX: R07.9 Chest pain, unspecified (principal); I25.2 Old myocardial infarction; J44.9 Chronic obstructive pulmonary disease, unspecified; N18.6 End stage renal disease; N40.0 Benign prostatic hyperplasia without lower urinary tract symptoms; M06.9 Rheumatoid arthritis, unspecified; G89.29 Other chronic pain; M54.9 Dorsalgia, unspecified; M19.90 Unspecified osteoarthritis, unspecified site; B19.20 Unspecified viral hepatitis C without hepatic coma; F03.90 Unspecified dementia, unspecified severity, without behavioral disturbance, psychotic disturbance, mood disturbance, and anxiety; F32.9 Major depressive disorder, single episode, unspecified; F17.200 Nicotine dependence, unspecified, uncomplicated; Z95.810 Presence of automatic (implantable) cardiac defibrillator; Z95.5 Presence of coronary angioplasty implant and graft; Z86.73 Personal history of transient ischemic attack (TIA), and cerebral infarction without residual deficits; Z79.82 Long term (current) use of aspirin; Z87.442 Personal history of urinary calculi; Z88.8 Allergy status to other drugs, medicaments and biological substances
CPT/HCPCS: 71045; 80053; 81003; 83690; 83735; 84484; 85025; 93005; 94640

== ENCOUNTER 2017-04-28 15:47 | Emergency (ER) | payer OTHER ==
[~2017-04-28] VITALS: Ht 185.4 cm; Wt 64.5 kg
[2017-04-28 16:51] LABS: BASOPHIL COUNT 0.1 K/uL (0-0.1); EOSINOPHIL (%) 1.3 % (0-5); EOSINOPHIL COUNT 0.1 K/uL (0-0.3); HEMATOCRIT 37.8 % (38.0-50.0); HEMOGLOBIN 12.4 G/DL (12.5-16.6); IMMATURE GRANULOCYTE (%) 0.1 % (0.0-0.7); LYMPHOCYTE (%) 28.2 % (15-42); LYMPHOCYTE COUNT 2.6 K/uL (1.0-2.8); MCH 30.8 PG (29.0-34.0); MCHC 32.8 G/DL (30.0-36.0); MCV 93.8 FL (86-99); MONOCYTE (%) 5.8 % (3-12); MONOCYTE COUNT 0.5 K/uL (0-0.8); NEUTROPHIL (%) 63.6 % (45-76); RBC DIS.WIDTH-CV 13.8 % (11.8-14.6); RBC DIS.WIDTH-SD 47.4 % (39-53); RED BLOOD COUNT 4.03 M/uL (4.00-5.50); WHITE BLOOD COUNT 9.3 K/uL (4.1-10.2)
[2017-04-28 16:52] LABS: PLATELET COUNT 224 K/uL (156-360)
[2017-04-28 16:56] VITALS: BP 129/75
[2017-04-28 16:57] LABS: ALBUMIN 3.9 g/dL (3.2-4.8); CHLORIDE 106 mEq/L (99-109); POTASSIUM 4.2 mEq/L (3.7-5.4); SODIUM 141 mEq/L (136-147)
[2017-04-28 16:58] LABS: MAGNESIUM 1.9 mg/dL (1.3-2.7)
[2017-04-28 16:59] LABS: GLUCOSE 96 mg/dL (70-99); TOTAL PROTEIN 6.5 g/dL (6.4-8.3)
[2017-04-28 17:01] LABS: TOTAL BILIRUBIN 0.3 mg/dL (0.0-1.0)
[2017-04-28 17:03] LABS: ALKALINE PHOSPHATASE 90 IU/L (3-129); CREATININE 1.2 mg/dL (0.6-1.3); GFR ESTIMATE (CALCULATED) > 59 mL/min/ (58.99-99999)
[2017-04-28 17:04] LABS: UREA NITROGEN (BUN) 16 mg/dL (9-23)
[2017-04-28 17:05] LABS: AST (GOT) 31 IU/L (2-34)
[2017-04-28 17:06] LABS: ALT (GPT) 24 IU/L (3-49)
[2017-04-28 17:12] LABS: TROP-I INTERPRETATION NEGATIVE; TROPONIN-I 0.01 ng/mL (0.0-0.30)
== END 2017-04-28 16:21 | disposition left against medical advice (07) ==
LOC: EME 15:47
PROVIDERS: Emergency Medicine
DX: R07.9 Chest pain, unspecified (principal); F17.200 Nicotine dependence, unspecified, uncomplicated; I13.2 Hypertensive heart and chronic kidney disease with heart failure and with stage 5 chronic kidney disease, or end stage renal disease; I50.9 Heart failure, unspecified; N18.6 End stage renal disease; Z95.810 Presence of automatic (implantable) cardiac defibrillator; I25.2 Old myocardial infarction; Z86.73 Personal history of transient ischemic attack (TIA), and cerebral infarction without residual deficits; J44.9 Chronic obstructive pulmonary disease, unspecified; F03.90 Unspecified dementia, unspecified severity, without behavioral disturbance, psychotic disturbance, mood disturbance, and anxiety; Z86.74 Personal history of sudden cardiac arrest; Z95.5 Presence of coronary angioplasty implant and graft; F32.9 Major depressive disorder, single episode, unspecified
CPT/HCPCS: 71045; 80053; 83735; 84484; 85025; 93005; 99281; 99284

== ENCOUNTER 2017-06-08 19:52 | Emergency (ER) | payer OTHER ==
[~2017-06-08] VITALS: Ht 185.4 cm; Wt 69.2 kg
[~2017-06-08 19:52] MED LIST changes: -OXAYDO5 MG PO
[2017-06-08 21:23] LABS: HEMATOCRIT 35.6 % (38.0-50.0); MCH 31.8 PG (29.0-34.0); MCHC 33.7 G/DL (30.0-36.0); MCV 94.4 FL (86-99); PLATELET COUNT 161 K/uL (156-360); RBC DIS.WIDTH-CV 14.5 % (11.8-14.6); RBC DIS.WIDTH-SD 50.1 % (39-53); RED BLOOD COUNT 3.77 M/uL (4.00-5.50); WHITE BLOOD COUNT 8.6 K/uL (4.1-10.2)
[2017-06-08 21:34] LABS: CHLORIDE 98 mEq/L (99-109); POTASSIUM 3.4 mEq/L (3.7-5.4); SODIUM 133 mEq/L (136-147)
[2017-06-08 21:35] LABS: D-DIMER ELISA < 150.00 ng/mLDDU (<230); GLUCOSE 101 mg/dL (70-99)
[2017-06-08 21:39] LABS: GFR ESTIMATE (CALCULATED) > 59 mL/min/ (58.99-99999)
[2017-06-08 21:40] LABS: UREA NITROGEN (BUN) 18 mg/dL (9-23)
[2017-06-08 21:45] LABS: TROP-I INTERPRETATION NEGATIVE; TROPONIN-I < 0.01 ng/mL (0.0-0.30)
[2017-06-08 21:55] LABS: APPEARANCE CLEAR ((CLEAR)); BILIRUBIN NEGATIVE; BLOOD MODERATE; COLOR YELLOW ((YELLOW)); GLUCOSE (STRIP) NEGATIVE; KETONES NEGATIVE; LEUKOCYTES NEGATIVE; NITRITE NEGATIVE; PROTEIN (STRIP) NEGATIVE; SPECIFIC GRAVITY 1.009 (1.000-1.030); UROBILINOGEN 0.2 MG/DL (0.2-1.0)
[2017-06-08 22:17] LABS: BACTERIA RARE /HPF; EPITHELIAL CELLS RARE /HPF; MUCUS TRACE /LPF; UCUL ADDED? NO; WHITE BLOOD CELLS 0-5 /HPF (0-5)
[2017-06-08] MEDS ORDERED: LEVAQUIN750 MG PO (23:04)
[2017-06-08 23:47] VITALS: BP 120/65
[2017-06-09] MEDS ORDERED: MORPHINE SULFAT15 M1 PO (10:59)
[2017-06-09] MEDS ORDERED: BACTROBAN OINTM22 GM TP (10:59)
== END 2017-06-08 23:49 | disposition left against medical advice (07) ==
LOC: EME 19:52
PROVIDERS: Emergency Medicine
DX: J18.9 Pneumonia, unspecified organism (principal); J44.0 Chronic obstructive pulmonary disease with (acute) lower respiratory infection; R07.9 Chest pain, unspecified; N20.0 Calculus of kidney; I12.0 Hypertensive chronic kidney disease with stage 5 chronic kidney disease or end stage renal disease; N18.6 End stage renal disease; I25.2 Old myocardial infarction; Z95.5 Presence of coronary angioplasty implant and graft; Z95.810 Presence of automatic (implantable) cardiac defibrillator; Z86.74 Personal history of sudden cardiac arrest; Z86.73 Personal history of transient ischemic attack (TIA), and cerebral infarction without residual deficits; Z87.442 Personal history of urinary calculi; Z79.82 Long term (current) use of aspirin; F17.200 Nicotine dependence, unspecified, uncomplicated
CPT/HCPCS: 71046; 74176; 80048; 81003; 83605; 83880; 84484; 85027; 85379; 87040; 93005; 94640; 99281; 99285; J2270; J2405

== ENCOUNTER 2017-06-09 07:05 | Inpatient (IN) | payer OTHER ==
[~2017-06-09] VITALS: Ht 182.9 cm; Wt 69.1 kg
[~2017-06-09 07:05] MED LIST changes: +LEVAQUIN750 MG PO
[2017-06-09 07:56] LABS: HEMATOCRIT 34.4 % (38.0-50.0); HEMOGLOBIN 11.5 G/DL (12.5-16.6); MCH 31.6 PG (29.0-34.0); MCHC 33.4 G/DL (30.0-36.0); MCV 94.5 FL (86-99); PLATELET COUNT 176 K/uL (156-360); RBC DIS.WIDTH-CV 14.6 % (11.8-14.6); RBC DIS.WIDTH-SD 50.4 % (39-53); RED BLOOD COUNT 3.64 M/uL (4.00-5.50); WHITE BLOOD COUNT 9.7 K/uL (4.1-10.2)
[2017-06-09 08:04] LABS: D-DIMER ELISA < 150.00 ng/mLDDU (<230)
[2017-06-09 08:24] LABS: CHLORIDE 97 MEQ/L (99-109); GFR ESTIMATE (CALCULATED) > 59 mL/min/ (58.99-99999); GLUCOSE 108 mg/dL (70-99); POTASSIUM 3.8 MEQ/L (3.7-5.4); SODIUM 135 MEQ/L (136-147); UREA NITROGEN (BUN) 14 mg/dL (9-23)
[2017-06-09 09:50] LABS: TROP-I INTERPRETATION NEGATIVE; TROPONIN-I < 0.01 ng/mL (0.0-0.30)
[2017-06-09 10:34] LABS: TROP-I INTERPRETATION NEGATIVE; TROPONIN-I < 0.01 ng/mL (0.0-0.30)
[2017-06-09] MEDS ORDERED: BACTROBAN OINTM22 GM TP (10:59)
[2017-06-09] MEDS ORDERED: MORPHINE SULFAT15 M1 PO (10:59)
[2017-06-09 15:15] VITALS: BP 117/59
[2017-06-09 15:20] VITALS: BP 112/60
[2017-06-09 16:47] LABS: TROP-I INTERPRETATION NEGATIVE; TROPONIN-I < 0.01 ng/mL (0.0-0.30)
[2017-06-09 20:00] VITALS: BP 110/48
[2017-06-10 01:12] VITALS: BP 103/58
[2017-06-10 04:03] VITALS: BP 110/55
[2017-06-10 07:04] LABS: HEMATOCRIT 34.6 % (38.0-50.0); HEMOGLOBIN 11.5 G/DL (12.5-16.6); MCH 31.8 PG (29.0-34.0); MCHC 33.2 G/DL (30.0-36.0); MCV 95.6 FL (86-99); PLATELET COUNT 161 K/uL (156-360); RBC DIS.WIDTH-SD 52.7 % (39-53); RED BLOOD COUNT 3.62 M/uL (4.00-5.50); WHITE BLOOD COUNT 5.7 K/uL (4.1-10.2)
[2017-06-10 07:34] LABS: CHLORIDE 102 MEQ/L (99-109); CREATININE 0.9 MG/DL (0.6-1.3); GFR ESTIMATE (CALCULATED) > 59 mL/min/ (58.99-99999); GLUCOSE 95 mg/dL (70-99); POTASSIUM 4.3 MEQ/L (3.7-5.4); SODIUM 139 MEQ/L (136-147); UREA NITROGEN (BUN) 11 mg/dL (9-23)
[2017-06-10 08:17] VITALS: BP 110/60
[2017-06-10 15:02] VITALS: BP 113/56
[2017-06-10 19:45] VITALS: BP 130/72
[2017-06-10 23:44] VITALS: BP 132/70
[2017-06-11 04:00] VITALS: BP 112/58
[2017-06-11 06:58] VITALS: BP 141/71
[2017-06-11] MEDS ORDERED: MUCINEX600 MG PO (09:18)
[2017-06-11] MEDS ORDERED: ACIDOPHILUS LA1 EACH PO (09:18)
[2017-06-11] MEDS ORDERED: CEFDINIR300 MG PO (09:19)
[2017-06-11 11:03] VITALS: BP 139/74
== END 2017-06-11 12:19 | disposition home or self-care (01) | DRG 193 ==
LOC: EME 07:05 → EDOF 09:31 → ENRESERV 09:40 → CANRESERV 09:40 → ENRESERV 09:42 → EDOF 09:45 → ENRESERV 10:49 → 5SOUTH 11:28 → ENPENDDIS 06-11 12:03 → 5SOUTH 06-11 12:19
PROVIDERS: Internal Medicine; Nurse Practitioner Family
DX: J18.1 Lobar pneumonia, unspecified organism (principal); N18.6 End stage renal disease; I13.2 Hypertensive heart and chronic kidney disease with heart failure and with stage 5 chronic kidney disease, or end stage renal disease; I50.22 Chronic systolic (congestive) heart failure; F11.20 Opioid dependence, uncomplicated; G89.29 Other chronic pain; I25.5 Ischemic cardiomyopathy; J44.9 Chronic obstructive pulmonary disease, unspecified; F17.210 Nicotine dependence, cigarettes, uncomplicated; F31.9 Bipolar disorder, unspecified; I25.10 Atherosclerotic heart disease of native coronary artery without angina pectoris; H53.2 Diplopia; F10.129 Alcohol abuse with intoxication, unspecified; D64.9 Anemia, unspecified; E78.5 Hyperlipidemia, unspecified; F03.90 Unspecified dementia, unspecified severity, without behavioral disturbance, psychotic disturbance, mood disturbance, and anxiety; F07.81 Postconcussional syndrome; I48.2 Chronic atrial fibrillation; N20.0 Calculus of kidney; R09.02 Hypoxemia; B18.2 Chronic viral hepatitis C; Z95.810 Presence of automatic (implantable) cardiac defibrillator; Z95.5 Presence of coronary angioplasty implant and graft; Z87.820 Personal history of traumatic brain injury; Z87.442 Personal history of urinary calculi; Z86.74 Personal history of sudden cardiac arrest; I25.2 Old myocardial infarction; Z79.51 Long term (current) use of inhaled steroids; Z88.5 Allergy status to narcotic agent
CPT/HCPCS: 70450; 80048; 83880; 84484; 85027; 85379; 87040; 87070; 87205; 93005; 94640; 99281; 99284; J0456; J0696; J1650; J1885; J7030

== ENCOUNTER 2017-06-18 09:59 | Emergency (ER) | payer OTHER ==
[~2017-06-18] VITALS: Ht 185.4 cm; Wt 64.7 kg
[~2017-06-18 09:59] MED LIST changes: +ACIDOPHILUS LA1 EACH PO; +BACTROBAN OINTM22 GM TP; +CEFDINIR300 MG PO; +MORPHINE SULFAT15 M1 PO; +MUCINEX600 MG PO
[2017-06-18 10:54] LABS: BASOPHIL COUNT 0.1 K/uL (0-0.1); EOSINOPHIL (%) 1.3 % (0-5); EOSINOPHIL COUNT 0.1 K/uL (0-0.3); HEMATOCRIT 40.9 % (38.0-50.0); HEMOGLOBIN 13.6 G/DL (12.5-16.6); IMMATURE GRANULOCYTE (%) 0.4 % (0.0-0.7); LYMPHOCYTE (%) 19.5 % (15-42); LYMPHOCYTE COUNT 1.5 K/uL (1.0-2.8); MCH 31.4 PG (29.0-34.0); MCHC 33.3 G/DL (30.0-36.0); MCV 94.5 FL (86-99); MONOCYTE (%) 6.1 % (3-12); MONOCYTE COUNT 0.5 K/uL (0-0.8); NEUTROPHIL (%) 71.7 % (45-76); NEUTROPHIL COUNT 5.6 K/uL (1.8-6.4); PLATELET COUNT 266 K/uL (156-360); RBC DIS.WIDTH-CV 14.7 % (11.8-14.6); RBC DIS.WIDTH-SD 51.4 % (39-53); RED BLOOD COUNT 4.33 M/uL (4.00-5.50); WHITE BLOOD COUNT 7.7 K/uL (4.1-10.2)
[2017-06-18 11:04] LABS: CHLORIDE 105 mEq/L (99-109); SODIUM 140 mEq/L (136-147)
[2017-06-18 11:05] LABS: GLUCOSE 100 mg/dL (70-99)
[2017-06-18 11:09] LABS: CREATININE 0.9 mg/dL (0.6-1.3); GFR ESTIMATE (CALCULATED) > 59 mL/min/ (58.99-99999)
[2017-06-18 11:10] LABS: UREA NITROGEN (BUN) 11 mg/dL (9-23)
[2017-06-18 11:43] LABS: APPEARANCE CLEAR ((CLEAR)); BILIRUBIN NEGATIVE; BLOOD NEGATIVE; COLOR YELLOW ((YELLOW)); GLUCOSE (STRIP) NEGATIVE; KETONES NEGATIVE; LEUKOCYTES NEGATIVE; NITRITE NEGATIVE; PROTEIN (STRIP) NEGATIVE; SPECIFIC GRAVITY 1.016 (1.000-1.030); UROBILINOGEN 0.2 MG/DL (0.2-1.0)
[2017-06-18] MEDS ORDERED: FLEXERIL10 MG PO (12:38)
[2017-06-18 12:45] VITALS: BP 142/75
== END 2017-06-18 12:45 | disposition home or self-care (01) ==
LOC: EME 09:59
PROVIDERS: Emergency Medicine
DX: M54.5 Low back pain (principal); G89.29 Other chronic pain; R10.9 Unspecified abdominal pain; N20.0 Calculus of kidney; J44.9 Chronic obstructive pulmonary disease, unspecified; I10 Essential (primary) hypertension; I50.9 Heart failure, unspecified; N18.6 End stage renal disease; N40.0 Benign prostatic hyperplasia without lower urinary tract symptoms; M06.9 Rheumatoid arthritis, unspecified; F03.90 Unspecified dementia, unspecified severity, without behavioral disturbance, psychotic disturbance, mood disturbance, and anxiety; M19.91 Primary osteoarthritis, unspecified site; I25.2 Old myocardial infarction; F32.9 Major depressive disorder, single episode, unspecified; F17.200 Nicotine dependence, unspecified, uncomplicated; Z87.01 Personal history of pneumonia (recurrent); Z86.73 Personal history of transient ischemic attack (TIA), and cerebral infarction without residual deficits; Z85.9 Personal history of malignant neoplasm, unspecified; Z95.810 Presence of automatic (implantable) cardiac defibrillator; Z95.5 Presence of coronary angioplasty implant and graft; Z86.74 Personal history of sudden cardiac arrest; Z86.19 Personal history of other infectious and parasitic diseases; Z87.19 Personal history of other diseases of the digestive system
CPT/HCPCS: 71045; 74176; 80048; 81003; 85025; 99281; 99284; J1885

== ENCOUNTER 2017-07-01 06:32 | Emergency (ER) | payer OTHER ==
[~2017-07-01] VITALS: Ht 185.4 cm; Wt 66.6 kg
[2017-07-01 07:25] LABS: HEMATOCRIT 41.3 % (38.0-50.0); MCHC 33.9 G/DL (30.0-36.0); MCV 94.5 FL (86-99); PLATELET COUNT 227 K/uL (156-360); RBC DIS.WIDTH-CV 15.1 % (11.8-14.6); RBC DIS.WIDTH-SD 52.4 % (39-53); RED BLOOD COUNT 4.37 M/uL (4.00-5.50); WHITE BLOOD COUNT 9.6 K/uL (4.1-10.2)
[2017-07-01 07:59] LABS: CHLORIDE 106 MEQ/L (99-109); GFR ESTIMATE (CALCULATED) > 59 mL/min/ (58.99-99999); GLUCOSE 83 mg/dL (70-99); POTASSIUM 4.4 MEQ/L (3.7-5.4); SODIUM 140 MEQ/L (136-147); UREA NITROGEN (BUN) 21 mg/dL (9-23)
[2017-07-01 08:27] LABS: APPEARANCE SL.HAZY ((CLEAR)); BILIRUBIN NEGATIVE; BLOOD NEGATIVE; GLUCOSE (STRIP) NEGATIVE; KETONES NEGATIVE; LEUKOCYTES NEGATIVE; NITRITE NEGATIVE; PROTEIN (STRIP) NEGATIVE; SPECIFIC GRAVITY 1.019 (1.000-1.030); UROBILINOGEN 0.2 MG/DL (0.2-1.0)
[2017-07-01 08:30] LABS: COLOR YELLOW ((YELLOW))
[2017-07-01 08:34] LABS: BACTERIA NONE SEEN /HPF; EPITHELIAL CELLS RARE /HPF; MUCUS NONE SEEN /LPF; RED BLOOD CELLS 0-5 /HPF (0-5); WHITE BLOOD CELLS 0-5 /HPF (0-5)
[2017-07-01] MEDS ORDERED: MOBIC7.5 MG PO (09:19)
[2017-07-01] MEDS ORDERED: FLEXERIL10 MG PO (09:19)
[2017-07-01] MEDS ORDERED: LIDODERM 5% P1 PATCH TD (09:19)
[2017-07-01 09:55] VITALS: BP 122/68
== END 2017-07-01 10:11 | disposition home or self-care (01) ==
LOC: EME → EDBD 06:32 → EME 10:11
PROVIDERS: Nurse Practitioner Family
DX: R10.9 Unspecified abdominal pain (principal); M54.5 Low back pain; R30.0 Dysuria; J44.9 Chronic obstructive pulmonary disease, unspecified; I12.0 Hypertensive chronic kidney disease with stage 5 chronic kidney disease or end stage renal disease; N18.6 End stage renal disease; N40.0 Benign prostatic hyperplasia without lower urinary tract symptoms; M06.9 Rheumatoid arthritis, unspecified; G89.29 Other chronic pain; I25.2 Old myocardial infarction; B19.20 Unspecified viral hepatitis C without hepatic coma; F32.9 Major depressive disorder, single episode, unspecified; F03.90 Unspecified dementia, unspecified severity, without behavioral disturbance, psychotic disturbance, mood disturbance, and anxiety; F17.200 Nicotine dependence, unspecified, uncomplicated; Z79.82 Long term (current) use of aspirin; Z79.891 Long term (current) use of opiate analgesic; Z95.5 Presence of coronary angioplasty implant and graft; Z95.810 Presence of automatic (implantable) cardiac defibrillator; Z87.442 Personal history of urinary calculi; Z86.74 Personal history of sudden cardiac arrest; Z87.19 Personal history of other diseases of the digestive system; Z86.79 Personal history of other diseases of the circulatory system; Z86.73 Personal history of transient ischemic attack (TIA), and cerebral infarction without residual deficits; Z85.9 Personal history of malignant neoplasm, unspecified; Z88.5 Allergy status to narcotic agent
CPT/HCPCS: 71046; 72100; 80048; 81003; 85027; 99281; 99284; J1885

== ENCOUNTER 2017-07-05 18:56 | Emergency (ER) | payer OTHER ==
[~2017-07-05] VITALS: Ht 185.4 cm; Wt 67.2 kg
[~2017-07-05 18:56] MED LIST changes: +MOBIC7.5 MG PO
[2017-07-05 19:44] LABS: HEMATOCRIT 34.4 % (38.0-50.0); RBC DIS.WIDTH-CV 14.4 % (11.8-14.6); RBC DIS.WIDTH-SD 50.2 % (39-53); RED BLOOD COUNT 3.66 M/uL (4.00-5.50); WHITE BLOOD COUNT 13.8 K/uL (4.1-10.2)
[2017-07-05 19:47] LABS: HEMOGLOBIN 11.7 G/DL (12.5-16.6)
[2017-07-05 19:57] LABS: CHLORIDE 94 mEq/L (99-109); POTASSIUM 4.5 mEq/L (3.7-5.4); SODIUM 133 mEq/L (136-147)
[2017-07-05 19:59] LABS: GLUCOSE 111 mg/dL (70-99)
[2017-07-05 20:03] LABS: CREATININE 0.9 mg/dL (0.6-1.3); GFR ESTIMATE (CALCULATED) > 59 mL/min/ (58.99-99999)
[2017-07-05 20:04] LABS: UREA NITROGEN (BUN) 18 mg/dL (9-23)
[2017-07-05 20:28] LABS: PLATELET CLUMPS PRESENT - PLATELET COUNT APPEARS ADQ.
[2017-07-05 20:42] LABS: PLATELET COUNT UNABLE TO REPORT K/uL (156-360)
[2017-07-05] MEDS ORDERED: PREDNISONE50 MG PO (21:05)
[2017-07-05 21:36] VITALS: BP 147/60
== END 2017-07-05 21:37 | disposition home or self-care (01) ==
LOC: EME 18:56
PROVIDERS: Emergency Medicine
DX: J44.1 Chronic obstructive pulmonary disease with (acute) exacerbation (principal); M94.0 Chondrocostal junction syndrome [Tietze]; I10 Essential (primary) hypertension; F03.90 Unspecified dementia, unspecified severity, without behavioral disturbance, psychotic disturbance, mood disturbance, and anxiety; M06.9 Rheumatoid arthritis, unspecified; B19.20 Unspecified viral hepatitis C without hepatic coma; F32.9 Major depressive disorder, single episode, unspecified; F17.200 Nicotine dependence, unspecified, uncomplicated; I25.2 Old myocardial infarction; Z95.5 Presence of coronary angioplasty implant and graft; Z95.810 Presence of automatic (implantable) cardiac defibrillator; Z87.442 Personal history of urinary calculi; Z86.73 Personal history of transient ischemic attack (TIA), and cerebral infarction without residual deficits; Z79.82 Long term (current) use of aspirin; Z88.5 Allergy status to narcotic agent; Z86.74 Personal history of sudden cardiac arrest
CPT/HCPCS: 71046; 80048; 84484; 85027; 93005; 94640; 99281; 99284; J7512

== ENCOUNTER 2017-07-08 09:31 | Emergency (ER) | payer OTHER ==
[~2017-07-08] VITALS: Ht 185.4 cm; Wt 67.4 kg
[~2017-07-08 09:31] MED LIST changes: +PREDNISONE50 MG PO
[2017-07-08 09:37] VITALS: BP 130/79
== END 2017-07-08 11:45 | disposition left against medical advice (07) ==
LOC: EME 09:31
DX: M54.9 Dorsalgia, unspecified (principal); Z53.21 Procedure and treatment not carried out due to patient leaving prior to being seen by health care provider
CPT/HCPCS: 81003; 99281; 99284; J2405

== ENCOUNTER 2017-07-16 18:45 | Observation (INO) | payer OTHER ==
[~2017-07-16] VITALS: Ht 185.4 cm; Wt 66.7 kg
[2017-07-16 19:09] LABS: HEMOGLOBIN 12.3 G/DL (12.5-16.6); MCH 31.4 PG (29.0-34.0); MCHC 32.4 G/DL (30.0-36.0); MCV 96.9 FL (86-99); PLATELET COUNT 210 K/uL (156-360); RBC DIS.WIDTH-CV 15.4 % (11.8-14.6); RBC DIS.WIDTH-SD 54.7 % (39-53); RED BLOOD COUNT 3.92 M/uL (4.00-5.50); WHITE BLOOD COUNT 8.6 K/uL (4.1-10.2)
[2017-07-16 19:19] LABS: CHLORIDE 106 mEq/L (99-109); POTASSIUM 3.8 mEq/L (3.7-5.4); SODIUM 143 mEq/L (136-147)
[2017-07-16 19:21] LABS: GLUCOSE 100 mg/dL (70-99)
[2017-07-16 19:25] LABS: CREATININE 1.1 mg/dL (0.6-1.3); GFR ESTIMATE (CALCULATED) > 59 mL/min/ (58.99-99999)
[2017-07-16 19:26] LABS: UREA NITROGEN (BUN) 13 mg/dL (9-23)
[2017-07-16 19:33] LABS: TROP-I INTERPRETATION NEGATIVE; TROPONIN-I 0.01 ng/mL (0.0-0.30)
[2017-07-16 19:56] LABS: ALBUMIN 3.9 g/dL (3.2-4.8)
[2017-07-16 19:57] LABS: MAGNESIUM 2.1 mg/dL (1.3-2.7)
[2017-07-16 19:59] LABS: TOTAL PROTEIN 6.6 g/dL (6.4-8.3)
[2017-07-16 20:01] LABS: TOTAL BILIRUBIN 0.4 mg/dL (0.0-1.0)
[2017-07-16 20:02] LABS: ALKALINE PHOSPHATASE 114 IU/L (3-129); SERUM ETHYL ALCOHOL < 10 mg/dL
[2017-07-16 20:26] LABS: AST (GOT) 32 IU/L (2-34); DIRECT BILIRUBIN 0.2 mg/dL (0.0-0.3)
[2017-07-16 20:27] LABS: ALT (GPT) 31 IU/L (3-49); LIPASE 9 U/L (1.0-51.0)
[2017-07-16] MEDS ORDERED: ELAVIL50 MG PO (22:15)
[2017-07-16] MEDS ORDERED: SOMA350 MG PO (22:15)
[2017-07-16 23:07] VITALS: BP 156/74
[2017-07-17 02:20] LABS: TROP-I INTERPRETATION NEGATIVE; TROPONIN-I 0.01 ng/mL (0.0-0.30)
[2017-07-17 05:15] LABS: HEMATOCRIT 37.3 % (38.0-50.0); HEMOGLOBIN 11.8 G/DL (12.5-16.6); MCH 30.6 PG (29.0-34.0); MCHC 31.6 G/DL (30.0-36.0); MCV 96.6 FL (86-99); PLATELET COUNT 209 K/uL (156-360); RBC DIS.WIDTH-CV 15.5 % (11.8-14.6); RBC DIS.WIDTH-SD 55.8 % (39-53); RED BLOOD COUNT 3.86 M/uL (4.00-5.50); WHITE BLOOD COUNT 7.6 K/uL (4.1-10.2)
[2017-07-17 05:45] LABS: CHLORIDE 109 MEQ/L (99-109); CREATININE 1.1 MG/DL (0.6-1.3); GFR ESTIMATE (CALCULATED) > 59 mL/min/ (58.99-99999); GLUCOSE 119 mg/dL (70-99); POTASSIUM 3.7 MEQ/L (3.7-5.4); SODIUM 144 MEQ/L (136-147); UREA NITROGEN (BUN) 14 mg/dL (9-23)
[2017-07-17 07:57] VITALS: BP 128/64
[2017-07-17 09:29] LABS: TROP-I INTERPRETATION NEGATIVE; TROPONIN-I 0.01 ng/mL (0.0-0.30)
[2017-07-17 11:46] VITALS: BP 130/64
[2017-07-17 15:50] VITALS: BP 109/58
[2017-07-17 19:30] VITALS: BP 108/71
[2017-07-17 23:04] VITALS: BP 121/59
[2017-07-18 04:00] VITALS: BP 106/60
[2017-07-18 07:49] VITALS: BP 140/76
[2017-07-18 11:22] VITALS: BP 139/87
[2017-07-18] MEDS ORDERED: TOPROL XL25 MG PO (11:28)
[2017-07-18] MEDS ORDERED: CORDARONE200 MG PO (11:28)
== END 2017-07-18 13:35 | disposition home or self-care (01) ==
LOC: EME 18:45 → EDOF 21:13 → 4SOUTH 21:13 → EDOF 21:13 → ENRESERV 21:15 → 4SOUTH 22:37
PROVIDERS: Nurse Practitioner Adult Health
DX: R07.9 Chest pain, unspecified (principal); I47.2 Ventricular tachycardia; I25.10 Atherosclerotic heart disease of native coronary artery without angina pectoris; I25.5 Ischemic cardiomyopathy; I11.0 Hypertensive heart disease with heart failure; I50.9 Heart failure, unspecified; J44.9 Chronic obstructive pulmonary disease, unspecified; F17.200 Nicotine dependence, unspecified, uncomplicated; R51 Headache; G89.29 Other chronic pain; M79.661 Pain in right lower leg; M79.662 Pain in left lower leg; M54.5 Low back pain; Z95.5 Presence of coronary angioplasty implant and graft; E78.5 Hyperlipidemia, unspecified; B19.20 Unspecified viral hepatitis C without hepatic coma; Z95.810 Presence of automatic (implantable) cardiac defibrillator; Z86.74 Personal history of sudden cardiac arrest; Z91.19 Patient's noncompliance with other medical treatment and regimen; I25.2 Old myocardial infarction; Z86.73 Personal history of transient ischemic attack (TIA), and cerebral infarction without residual deficits; F31.9 Bipolar disorder, unspecified; Z82.49 Family history of ischemic heart disease and other diseases of the circulatory system; Z79.82 Long term (current) use of aspirin; F14.11 Cocaine abuse, in remission; F10.11 Alcohol abuse, in remission; Z88.5 Allergy status to narcotic agent
CPT/HCPCS: 71045; 80048; 80076; 83690; 83735; 84484; 85027; 93005; 99202; 99281; 99285; G0378; G0480

== ENCOUNTER 2017-07-21 13:44 | Observation (INO) | payer OTHER ==
[~2017-07-21] VITALS: Ht 185.4 cm; Wt 65.5 kg
[~2017-07-21 13:44] MED LIST changes: +ELAVIL50 MG PO; +TOPROL XL25 MG PO
[2017-07-21 14:44] LABS: HEMATOCRIT 42.9 % (38.0-50.0); MCH 31.4 PG (29.0-34.0); MCHC 33.6 G/DL (30.0-36.0); MCV 93.7 FL (86-99); RBC DIS.WIDTH-CV 14.8 % (11.8-14.6); RBC DIS.WIDTH-SD 51.2 % (39-53); RED BLOOD COUNT 4.58 M/uL (4.00-5.50)
[2017-07-21 14:47] LABS: HEMOGLOBIN 14.4 G/DL (12.5-16.6); PLATELET COUNT 330 K/uL (156-360)
[2017-07-21 14:49] LABS: CHLORIDE 106 mEq/L (99-109); SODIUM 141 mEq/L (136-147)
[2017-07-21 14:51] LABS: GLUCOSE 108 mg/dL (70-99); POTASSIUM 4.7 mEq/L (3.7-5.4)
[2017-07-21 14:55] LABS: CREATININE 0.9 mg/dL (0.6-1.3); GFR ESTIMATE (CALCULATED) > 59 mL/min/ (58.99-99999)
[2017-07-21 14:56] LABS: UREA NITROGEN (BUN) 19 mg/dL (9-23)
[2017-07-21 14:57] LABS: D-DIMER ELISA < 150.00 ng/mLDDU (<230)
[2017-07-21 15:01] LABS: TROP-I INTERPRETATION NEGATIVE; TROPONIN-I < 0.01 ng/mL (0.0-0.30)
[2017-07-21] MEDS ORDERED: TOPROL XL25 MG PO (17:59)
[2017-07-21] MEDS ORDERED: AMIODARONE HCL200 MG PO (17:59)
[2017-07-21 18:49] LABS: TROP-I INTERPRETATION NEGATIVE; TROPONIN-I < 0.01 ng/mL (0.0-0.30)
[2017-07-21 20:08] VITALS: BP 146/73
[2017-07-21 22:38] VITALS: BP 118/62
[2017-07-22 01:24] LABS: TROP-I INTERPRETATION NEGATIVE; TROPONIN-I < 0.01 ng/mL (0.0-0.30)
[2017-07-22 03:35] VITALS: BP 123/70
[2017-07-22 06:57] VITALS: BP 110/69
[2017-07-22 07:48] LABS: TROP-I INTERPRETATION NEGATIVE; TROPONIN-I 0.02 ng/mL (0.0-0.30)
== END 2017-07-22 10:04 | disposition home or self-care (01) ==
LOC: EME 13:44 → EDOF 18:59 → ENRESERV 19:03 → 4SOUTH 20:00 → ENPENDDIS 07-22 09:38 → 4SOUTH 07-22 10:04
PROVIDERS: Emergency Medicine Emergency Medical Services; Hospitalist
DX: R07.89 Other chest pain (principal); G89.4 Chronic pain syndrome; F11.20 Opioid dependence, uncomplicated; J44.9 Chronic obstructive pulmonary disease, unspecified; F17.200 Nicotine dependence, unspecified, uncomplicated; I25.10 Atherosclerotic heart disease of native coronary artery without angina pectoris; Z86.73 Personal history of transient ischemic attack (TIA), and cerebral infarction without residual deficits; E78.5 Hyperlipidemia, unspecified; I11.0 Hypertensive heart disease with heart failure; I50.9 Heart failure, unspecified; B19.20 Unspecified viral hepatitis C without hepatic coma; F31.9 Bipolar disorder, unspecified; I25.5 Ischemic cardiomyopathy; I25.2 Old myocardial infarction; Z95.810 Presence of automatic (implantable) cardiac defibrillator; Z95.5 Presence of coronary angioplasty implant and graft; F10.11 Alcohol abuse, in remission; Z98.1 Arthrodesis status; Z88.5 Allergy status to narcotic agent
CPT/HCPCS: 71045; 80048; 83880; 84484; 85027; 85379; 93005; 99281; 99285; G0378; J1650

== ENCOUNTER 2017-08-28 22:35 | Observation (INO) | payer OTHER ==
[~2017-08-28] VITALS: Ht 185.4 cm; Wt 67.7 kg
[2017-08-28 22:53] LABS: BASOPHIL COUNT 0.1 K/uL (0-0.1); EOSINOPHIL (%) 1.6 % (0-5); EOSINOPHIL COUNT 0.2 K/uL (0-0.3); HEMOGLOBIN 12.9 G/DL (12.5-16.6); IMMATURE GRANULOCYTE (%) 0.6 % (0.0-0.7); LYMPHOCYTE (%) 23.2 % (15-42); LYMPHOCYTE COUNT 2.8 K/uL (1.0-2.8); MCH 31.6 PG (29.0-34.0); MCHC 33.1 G/DL (30.0-36.0); MCV 95.6 FL (86-99); MONOCYTE (%) 7.5 % (3-12); MONOCYTE COUNT 0.9 K/uL (0-0.8); NEUTROPHIL (%) 66.1 % (45-76); NEUTROPHIL COUNT 7.8 K/uL (1.8-6.4); PLATELET COUNT 186 K/uL (156-360); RBC DIS.WIDTH-CV 14.4 % (11.8-14.6); RBC DIS.WIDTH-SD 50.5 % (39-53); RED BLOOD COUNT 4.08 M/uL (4.00-5.50); WHITE BLOOD COUNT 11.8 K/uL (4.1-10.2)
[2017-08-28 23:01] LABS: D-DIMER ELISA < 150.00 ng/mLDDU (<230)
[2017-08-28 23:05] LABS: ALBUMIN 4.5 g/dL (3.2-4.8); CHLORIDE 102 mEq/L (99-109); POTASSIUM 3.9 mEq/L (3.7-5.4); SODIUM 139 mEq/L (136-147)
[2017-08-28 23:07] LABS: GLUCOSE 114 mg/dL (70-99)
[2017-08-28 23:08] LABS: TOTAL PROTEIN 7.4 g/dL (6.4-8.3)
[2017-08-28 23:09] LABS: TOTAL BILIRUBIN 0.5 mg/dL (0.0-1.0)
[2017-08-28 23:11] LABS: ALKALINE PHOSPHATASE 88 IU/L (3-129); CREATININE 1.3 mg/dL (0.6-1.3); GFR ESTIMATE (CALCULATED) > 59 mL/min/ (58.99-99999)
[2017-08-28 23:12] LABS: UREA NITROGEN (BUN) 16 mg/dL (9-23)
[2017-08-28 23:13] LABS: AST (GOT) 32 IU/L (2-34)
[2017-08-28 23:14] LABS: ALT (GPT) 27 IU/L (3-49)
[2017-08-28 23:15] LABS: LIPASE 11 U/L (1.0-51.0)
[2017-08-28 23:20] LABS: TROP-I INTERPRETATION NEGATIVE; TROPONIN-I < 0.01 ng/mL (0.0-0.30)
[2017-08-29] MEDS ORDERED: ONDANSETRON HCL4 MG PO (00:12)
[2017-08-29] MEDS ORDERED: FAMOTIDINE20 MG PO (00:14)
[2017-08-29] MEDS ORDERED: CARISOPRODOL350 MG PO (00:14)
[2017-08-29] MEDS ORDERED: FUROSEMIDE20 MG PO (00:15)
[2017-08-29 02:34] VITALS: BP 118/59
[2017-08-29 05:36] LABS: TROP-I INTERPRETATION NEGATIVE; TROPONIN-I 0.01 ng/mL (0.0-0.30)
== END 2017-08-29 07:30 | disposition left against medical advice (07) ==
LOC: EME → EDBD 22:35 → EME 22:35 → 4SOUTH 08-29 01:19 → EDOF 08-29 01:19 → ENRESERV 08-29 01:21 → 4SOUTH 08-29 02:11
PROVIDERS: Emergency Medicine; Physician Assistant
DX: R07.9 Chest pain, unspecified (principal); G89.29 Other chronic pain; I25.10 Atherosclerotic heart disease of native coronary artery without angina pectoris; Z95.5 Presence of coronary angioplasty implant and graft; Z95.810 Presence of automatic (implantable) cardiac defibrillator; I25.5 Ischemic cardiomyopathy; J43.9 Emphysema, unspecified; B19.20 Unspecified viral hepatitis C without hepatic coma; R06.02 Shortness of breath; R42 Dizziness and giddiness; Z79.82 Long term (current) use of aspirin; F17.200 Nicotine dependence, unspecified, uncomplicated; Z86.73 Personal history of transient ischemic attack (TIA), and cerebral infarction without residual deficits
CPT/HCPCS: 70450; 71046; 80053; 83690; 84484; 85025; 85379; 93005; 99281; 99285; G0378; J0696; J7512

== ENCOUNTER 2017-09-08 13:16 | Emergency (ER) | payer OTHER ==
[~2017-09-08] VITALS: Ht 185.4 cm; Wt 68.5 kg
[~2017-09-08 13:16] MED LIST changes: +FAMOTIDINE20 MG PO; +ONDANSETRON HCL4 MG PO
[2017-09-08 13:21] VITALS: BP 124/74
== END 2017-09-08 14:58 | disposition left against medical advice (07) ==
LOC: EME 13:16
DX: T82.198A Other mechanical complication of other cardiac electronic device, initial encounter (principal); Z53.20 Procedure and treatment not carried out because of patient's decision for unspecified reasons; I11.0 Hypertensive heart disease with heart failure; I50.9 Heart failure, unspecified; J44.9 Chronic obstructive pulmonary disease, unspecified; R42 Dizziness and giddiness; R94.31 Abnormal electrocardiogram [ECG] [EKG]; I25.2 Old myocardial infarction; Z88.5 Allergy status to narcotic agent; F17.200 Nicotine dependence, unspecified, uncomplicated; Y83.1 Surgical operation with implant of artificial internal device as the cause of abnormal reaction of the patient, or of later complication, without mention of misadventure at the time of the procedure
CPT/HCPCS: 80048; 84484; 85025; 85610; 85730; 93005

== ENCOUNTER 2017-09-09 23:28 | Observation (INO) | payer OTHER ==
[~2017-09-09] VITALS: Ht 185.4 cm; Wt 67.9 kg
[2017-09-10 00:01] LABS: HEMOGLOBIN 12.6 G/DL (12.5-16.6); MCH 31.6 PG (29.0-34.0); MCHC 32.3 G/DL (30.0-36.0); MCV 97.7 FL (86-99); PLATELET COUNT 154 K/uL (156-360); RBC DIS.WIDTH-CV 15.1 % (11.8-14.6); RBC DIS.WIDTH-SD 54.5 % (39-53); RED BLOOD COUNT 3.99 M/uL (4.00-5.50); WHITE BLOOD COUNT 7.8 K/uL (4.1-10.2)
[2017-09-10 00:10] LABS: PTT 25.1 SEC (25-37)
[2017-09-10 00:13] LABS: ALBUMIN 4.1 g/dL (3.2-4.8); CHLORIDE 104 mEq/L (99-109); POTASSIUM 4.3 mEq/L (3.7-5.4); SODIUM 142 mEq/L (136-147)
[2017-09-10 00:15] LABS: GLUCOSE 83 mg/dL (70-99); TOTAL PROTEIN 6.3 g/dL (6.4-8.3)
[2017-09-10 00:17] LABS: TOTAL BILIRUBIN 0.2 mg/dL (0.0-1.0)
[2017-09-10 00:18] LABS: ALKALINE PHOSPHATASE 81 IU/L (3-129); SERUM ETHYL ALCOHOL < 10 mg/dL
[2017-09-10 00:19] LABS: CREATININE 1.3 mg/dL (0.6-1.3); GFR ESTIMATE (CALCULATED) > 59 mL/min/ (58.99-99999)
[2017-09-10 00:20] LABS: AST (GOT) 34 IU/L (2-34); UREA NITROGEN (BUN) 13 mg/dL (9-23)
[2017-09-10 00:22] LABS: ALT (GPT) 32 IU/L (3-49); LIPASE 12 U/L (1.0-51.0); TROP-I INTERPRETATION NEGATIVE; TROPONIN-I 0.01 ng/mL (0.0-0.30)
[2017-09-10 03:03] VITALS: BP 119/67
[2017-09-10 06:02] LABS: TROP-I INTERPRETATION NEGATIVE; TROPONIN-I < 0.01 ng/mL (0.0-0.30)
[2017-09-10 07:51] VITALS: BP 109/70
== END 2017-09-10 09:33 | disposition left against medical advice (07) ==
LOC: EME → EDBD 23:28 → EME 23:28 → 4SOUTH 09-10 01:37 → EDOF 09-10 01:37 → ENRESERV 09-10 01:38 → 4SOUTH 09-10 02:43
PROVIDERS: Emergency Medicine; Nurse Practitioner Adult Health
DX: R07.9 Chest pain, unspecified (principal); I11.0 Hypertensive heart disease with heart failure; I50.9 Heart failure, unspecified; I25.2 Old myocardial infarction; J43.9 Emphysema, unspecified; Z86.73 Personal history of transient ischemic attack (TIA), and cerebral infarction without residual deficits; F03.90 Unspecified dementia, unspecified severity, without behavioral disturbance, psychotic disturbance, mood disturbance, and anxiety; F10.10 Alcohol abuse, uncomplicated; F17.200 Nicotine dependence, unspecified, uncomplicated; F32.9 Major depressive disorder, single episode, unspecified; Z87.442 Personal history of urinary calculi; Z87.19 Personal history of other diseases of the digestive system; Z82.49 Family history of ischemic heart disease and other diseases of the circulatory system; Z79.82 Long term (current) use of aspirin; Z95.0 Presence of cardiac pacemaker; Z87.820 Personal history of traumatic brain injury
CPT/HCPCS: 71045; 80053; 83690; 84484; 85027; 85610; 85730; 93005; 99281; 99285; G0378; G0480; J7030; S0028

== ENCOUNTER 2017-09-11 15:18 | Observation (INO) | payer OTHER ==
[~2017-09-11] VITALS: Ht 185.4 cm; Wt 67.3 kg
[2017-09-11 15:51] LABS: HEMATOCRIT 37.4 % (38.0-50.0); HEMOGLOBIN 12.4 G/DL (12.5-16.6); MCH 31.8 PG (29.0-34.0); MCHC 33.2 G/DL (30.0-36.0); MCV 95.9 FL (86-99); PLATELET COUNT 121 K/uL (156-360); RBC DIS.WIDTH-CV 14.8 % (11.8-14.6); RBC DIS.WIDTH-SD 52.6 % (39-53); WHITE BLOOD COUNT 7.2 K/uL (4.1-10.2)
[2017-09-11 16:03] LABS: CHLORIDE 105 mEq/L (99-109); POTASSIUM 4.6 mEq/L (3.7-5.4); SODIUM 144 mEq/L (136-147)
[2017-09-11 16:04] LABS: GLUCOSE 100 mg/dL (70-99)
[2017-09-11 16:08] LABS: CREATININE 0.9 mg/dL (0.6-1.3); GFR ESTIMATE (CALCULATED) > 59 mL/min/ (58.99-99999)
[2017-09-11 16:09] LABS: UREA NITROGEN (BUN) 6 mg/dL (9-23)
[2017-09-11 16:13] LABS: TROP-I INTERPRETATION NEGATIVE; TROPONIN-I 0.02 ng/mL (0.0-0.30)
[2017-09-11 19:00] VITALS: BP 133/62
[2017-09-11 19:23] VITALS: BP 167/74
[2017-09-11 20:27] LABS: TROP-I INTERPRETATION NEGATIVE; TROPONIN-I < 0.01 ng/mL (0.0-0.30)
[2017-09-11 23:56] VITALS: BP 121/70
[2017-09-12 03:13] LABS: TROP-I INTERPRETATION NEGATIVE; TROPONIN-I 0.01 ng/mL (0.0-0.30)
[2017-09-12 03:48] VITALS: BP 149/73
[2017-09-12 07:45] VITALS: BP 138/85
[2017-09-12 08:23] LABS: HEMATOCRIT 42.2 % (38.0-50.0); HEMOGLOBIN 13.3 G/DL (12.5-16.6); MCH 30.5 PG (29.0-34.0); MCHC 31.5 G/DL (30.0-36.0); MCV 96.8 FL (86-99); RBC DIS.WIDTH-CV 14.7 % (11.8-14.6); RBC DIS.WIDTH-SD 53.1 % (39-53); RED BLOOD COUNT 4.36 M/uL (4.00-5.50); WHITE BLOOD COUNT 6.7 K/uL (4.1-10.2)
[2017-09-12 08:24] LABS: PLATELET COUNT 173 K/uL (156-360)
[2017-09-12 12:02] VITALS: BP 121/64
[2017-09-12] MEDS ORDERED: LISINOPRIL5 MG PO (13:41)
== END 2017-09-12 14:13 | disposition home or self-care (01) ==
LOC: EME 15:18 → EDOF 16:37 → 4SOUTH 16:37 → ENRESERV 16:39 → 4SOUTH 17:41
PROVIDERS: Emergency Medicine; Hospitalist; Physician Assistant Medical
DX: R07.9 Chest pain, unspecified (principal); I25.5 Ischemic cardiomyopathy; Z95.810 Presence of automatic (implantable) cardiac defibrillator; I25.10 Atherosclerotic heart disease of native coronary artery without angina pectoris; Z95.5 Presence of coronary angioplasty implant and graft; I11.0 Hypertensive heart disease with heart failure; I50.9 Heart failure, unspecified; F17.210 Nicotine dependence, cigarettes, uncomplicated; I25.2 Old myocardial infarction; I48.91 Unspecified atrial fibrillation; B19.20 Unspecified viral hepatitis C without hepatic coma; E78.5 Hyperlipidemia, unspecified; F19.11 Other psychoactive substance abuse, in remission; Z79.82 Long term (current) use of aspirin; J44.9 Chronic obstructive pulmonary disease, unspecified; G89.29 Other chronic pain; F31.9 Bipolar disorder, unspecified; Z86.73 Personal history of transient ischemic attack (TIA), and cerebral infarction without residual deficits; F03.90 Unspecified dementia, unspecified severity, without behavioral disturbance, psychotic disturbance, mood disturbance, and anxiety; Z87.19 Personal history of other diseases of the digestive system; Z87.442 Personal history of urinary calculi; Z82.49 Family history of ischemic heart disease and other diseases of the circulatory system
CPT/HCPCS: 71045; 80048; 82948; 84484; 85027; 87641; 93005; 99202; 99281; 99284; G0378; J1644

== ENCOUNTER 2017-10-08 13:37 | Emergency (ER) | payer OTHER ==
[~2017-10-08] VITALS: Ht 185.4 cm; Wt 62.6 kg
[~2017-10-08 13:37] MED LIST changes: +LISINOPRIL5 MG PO
[2017-10-08] MEDS ORDERED: DILAUDID4 MG PO (16:15)
[2017-10-08 17:00] VITALS: BP 124/66
== END 2017-10-08 17:00 | disposition home or self-care (01) ==
LOC: EME 13:37
DX: G89.18 Other acute postprocedural pain (principal); M54.2 Cervicalgia; Z98.890 Other specified postprocedural states; I11.0 Hypertensive heart disease with heart failure; I50.9 Heart failure, unspecified; I25.2 Old myocardial infarction; J44.9 Chronic obstructive pulmonary disease, unspecified; F03.90 Unspecified dementia, unspecified severity, without behavioral disturbance, psychotic disturbance, mood disturbance, and anxiety; F32.9 Major depressive disorder, single episode, unspecified; F17.200 Nicotine dependence, unspecified, uncomplicated; Z87.442 Personal history of urinary calculi; Z86.73 Personal history of transient ischemic attack (TIA), and cerebral infarction without residual deficits; Z79.82 Long term (current) use of aspirin; Z88.5 Allergy status to narcotic agent
CPT/HCPCS: 72040; 99281; 99284

== ENCOUNTER 2017-10-11 16:22 | Inpatient (IN) | payer OTHER ==
[~2017-10-11] VITALS: Ht 185.4 cm; Wt 63.4 kg
[~2017-10-11 16:22] MED LIST changes: +DILAUDID4 MG PO
[2017-10-11 17:38] LABS: HEMATOCRIT 38.2 % (38.0-50.0); HEMOGLOBIN 12.9 G/DL (12.5-16.6); MCH 31.2 PG (29.0-34.0); MCHC 33.8 G/DL (30.0-36.0); RBC DIS.WIDTH-CV 14.2 % (11.8-14.6); RBC DIS.WIDTH-SD 47.9 % (39-53); RED BLOOD COUNT 4.14 M/uL (4.00-5.50); WHITE BLOOD COUNT 9.5 K/uL (4.1-10.2)
[2017-10-11 17:39] LABS: MCV 92.3 FL (86-99); PLATELET COUNT 298 K/uL (156-360)
[2017-10-11 17:49] LABS: INTER. NORMALIZED RATIO 1.2
[2017-10-11 17:52] LABS: PTT 27.7 SEC (25-37)
[2017-10-11 18:01] LABS: TROP-I INTERPRETATION NEGATIVE; TROPONIN-I 0.05 ng/mL (0.0-0.30)
[2017-10-11 18:24] LABS: CHLORIDE 102 mEq/L (99-109); POTASSIUM 3.7 mEq/L (3.7-5.4); SODIUM 138 mEq/L (136-147)
[2017-10-11 18:25] LABS: GLUCOSE 89 mg/dL (70-99)
[2017-10-11 18:29] LABS: CREATININE 1.3 mg/dL (0.6-1.3); GFR ESTIMATE (CALCULATED) > 59 mL/min/ (58.99-99999)
[2017-10-11 18:30] LABS: UREA NITROGEN (BUN) 15 mg/dL (9-23)
[2017-10-12 01:11] VITALS: BP 113/65
[2017-10-12 02:42] LABS: HEMATOCRIT 33.6 % (38.0-50.0); HEMOGLOBIN 11.5 G/DL (12.5-16.6); MCH 31.6 PG (29.0-34.0); MCHC 34.2 G/DL (30.0-36.0); MCV 92.3 FL (86-99); PLATELET COUNT 272 K/uL (156-360); RBC DIS.WIDTH-CV 14.3 % (11.8-14.6); RBC DIS.WIDTH-SD 48.3 % (39-53); RED BLOOD COUNT 3.64 M/uL (4.00-5.50)
[2017-10-12 03:00] LABS: ALBUMIN 3.3 g/dL (3.2-4.8)
[2017-10-12 03:01] LABS: CHLORIDE 104 mEq/L (99-109); POTASSIUM 3.8 mEq/L (3.7-5.4); SODIUM 140 mEq/L (136-147)
[2017-10-12 03:03] LABS: GLUCOSE 97 mg/dL (70-99); TOTAL PROTEIN 5.5 g/dL (6.4-8.3)
[2017-10-12 03:05] LABS: TOTAL BILIRUBIN 0.2 mg/dL (0.0-1.0)
[2017-10-12 03:06] LABS: ALKALINE PHOSPHATASE 80 IU/L (3-129)
[2017-10-12 03:07] LABS: GFR ESTIMATE (CALCULATED) > 59 mL/min/ (58.99-99999)
[2017-10-12 03:08] LABS: AST (GOT) 60 IU/L (2-34); UREA NITROGEN (BUN) 14 mg/dL (9-23)
[2017-10-12 03:09] LABS: ALT (GPT) 28 IU/L (3-49)
[2017-10-12 03:58] VITALS: BP 107/63
[2017-10-12 07:43] VITALS: BP 109/65
[2017-10-12 12:24] VITALS: BP 105/76
[2017-10-12 19:12] VITALS: BP 126/64
[2017-10-12 23:16] VITALS: BP 116/60
[2017-10-13 03:54] VITALS: BP 107/68
[2017-10-13 07:21] VITALS: BP 129/77
[2017-10-13] MEDS ORDERED: ELIQUIS5 MG PO (07:49)
[2017-10-13 08:36] LABS: HEMATOCRIT 39.7 % (38.0-50.0); HEMOGLOBIN 12.9 G/DL (12.5-16.6); MCHC 32.5 G/DL (30.0-36.0); MCV 95.4 FL (86-99); PLATELET COUNT 323 K/uL (156-360); RBC DIS.WIDTH-CV 14.3 % (11.8-14.6); RBC DIS.WIDTH-SD 50.4 % (39-53); RED BLOOD COUNT 4.16 M/uL (4.00-5.50); WHITE BLOOD COUNT 7.4 K/uL (4.1-10.2)
[2017-10-13 11:30] VITALS: BP 126/73
[2017-10-13] MEDS ORDERED: SPIRIVA RESPIMAT4 GM IH (12:06)
[2017-10-13] MEDS ORDERED: AZITHROMYCIN500 M1 PO (12:06)
[2017-10-13] MEDS ORDERED: PREDNISONE10 MG PO (12:06)
[2017-10-13] MEDS ORDERED: DULERA 100 MCG/13 GM IH (12:07)
[2017-10-13] MEDS ORDERED: VENTOLIN HFA18 GM IH (12:23)
[2017-10-13] MEDS ORDERED: PERCOCET 10/1 TABLET PO (13:55)
[2017-10-18] MEDS ORDERED: PERCOCET 10/1 TABLET PO (11:56)
[2017-10-18] MEDS ORDERED: ELAVIL10 MG PO (11:57)
== END 2017-10-13 15:25 | disposition home or self-care (01) | DRG 176 ==
LOC: EME 16:22 → 5SOUTH 22:45 → EDOF 22:45 → ENRESERV 22:47 → EDOF 10-12 00:15 → 5SOUTH 10-12 00:15
PROVIDERS: Hospitalist; Internal Medicine; Physician Assistant Medical
DX: I26.99 Other pulmonary embolism without acute cor pulmonale (principal); R91.1 Solitary pulmonary nodule; J44.1 Chronic obstructive pulmonary disease with (acute) exacerbation; J44.0 Chronic obstructive pulmonary disease with (acute) lower respiratory infection; J20.9 Acute bronchitis, unspecified; I48.91 Unspecified atrial fibrillation; I11.0 Hypertensive heart disease with heart failure; I50.9 Heart failure, unspecified; I25.5 Ischemic cardiomyopathy; Z95.810 Presence of automatic (implantable) cardiac defibrillator; F11.20 Opioid dependence, uncomplicated; G89.4 Chronic pain syndrome; M54.2 Cervicalgia; Z68.1 Body mass index [BMI] 19.9 or less, adult; I25.10 Atherosclerotic heart disease of native coronary artery without angina pectoris; B19.20 Unspecified viral hepatitis C without hepatic coma; G43.909 Migraine, unspecified, not intractable, without status migrainosus; I25.2 Old myocardial infarction; E78.5 Hyperlipidemia, unspecified; F31.9 Bipolar disorder, unspecified; F17.210 Nicotine dependence, cigarettes, uncomplicated; Z86.73 Personal history of transient ischemic attack (TIA), and cerebral infarction without residual deficits
CPT/HCPCS: 71045; 71275; 80048; 80053; 84484; 85027; 85379; 85610; 85730; 93005; 93970; 94799; 99281; 99285; J2270; J7030; J7512

== ENCOUNTER 2017-10-17 12:39 | Emergency (ER) | payer OTHER ==
[~2017-10-17] VITALS: Ht 185.4 cm; Wt 64.0 kg
[~2017-10-17 12:39] MED LIST changes: +AZITHROMYCIN500 M1 PO; +DULERA 100 MCG/13 GM IH; +ELIQUIS5 MG PO; +SPIRIVA RESPIMAT4 GM IH; +VENTOLIN HFA18 GM IH
[2017-10-17 14:21] LABS: HEMATOCRIT 35.4 % (38.0-50.0); HEMOGLOBIN 11.8 G/DL (12.5-16.6); MCH 31.6 PG (29.0-34.0); MCHC 33.3 G/DL (30.0-36.0); MCV 94.7 FL (86-99); PLATELET COUNT 325 K/uL (156-360); RBC DIS.WIDTH-CV 14.5 % (11.8-14.6); RBC DIS.WIDTH-SD 50.4 % (39-53); RED BLOOD COUNT 3.74 M/uL (4.00-5.50); WHITE BLOOD COUNT 8.2 K/uL (4.1-10.2)
[2017-10-17 14:32] LABS: CHLORIDE 107 mEq/L (99-109); POTASSIUM 3.9 mEq/L (3.7-5.4); SODIUM 144 mEq/L (136-147)
[2017-10-17 14:33] LABS: GLUCOSE 89 mg/dL (70-99)
[2017-10-17 14:37] LABS: GFR ESTIMATE (CALCULATED) > 59 mL/min/ (58.99-99999)
[2017-10-17 14:38] LABS: UREA NITROGEN (BUN) 12 mg/dL (9-23)
[2017-10-17 14:43] LABS: TROP-I INTERPRETATION NEGATIVE; TROPONIN-I 0.01 ng/mL (0.0-0.30)
[2017-10-17 15:00] VITALS: BP 148/76
[2017-10-18] MEDS ORDERED: PERCOCET 10/1 TABLET PO (11:56)
[2017-10-18] MEDS ORDERED: TRAZODONE HCL50 MG PO (11:57)
[2017-10-18] MEDS ORDERED: ELAVIL10 MG PO (11:57)
== END 2017-10-17 16:09 | disposition left against medical advice (07) ==
LOC: EME 12:39
DX: R07.9 Chest pain, unspecified (principal); M25.552 Pain in left hip; F03.90 Unspecified dementia, unspecified severity, without behavioral disturbance, psychotic disturbance, mood disturbance, and anxiety; I11.0 Hypertensive heart disease with heart failure; I50.9 Heart failure, unspecified; I25.2 Old myocardial infarction; B19.20 Unspecified viral hepatitis C without hepatic coma; F17.200 Nicotine dependence, unspecified, uncomplicated; J43.9 Emphysema, unspecified; F32.9 Major depressive disorder, single episode, unspecified; M79.7 Fibromyalgia; Z86.73 Personal history of transient ischemic attack (TIA), and cerebral infarction without residual deficits; Z98.1 Arthrodesis status; Z88.5 Allergy status to narcotic agent
CPT/HCPCS: 71046; 73502; 80048; 84484; 85027; 93005

== ENCOUNTER 2017-10-17 21:22 | Emergency (ER) | payer OTHER ==
[~2017-10-17] VITALS: Ht 188 cm; Wt 61.6 kg
[2017-10-17 23:54] VITALS: BP 131/67
[2017-10-18] MEDS ORDERED: PERCOCET 10/1 TABLET PO (11:56)
[2017-10-18] MEDS ORDERED: ELAVIL10 MG PO (11:57)
[2017-10-18] MEDS ORDERED: TRAZODONE HCL50 MG PO (11:57)
== END 2017-10-17 23:56 | disposition home or self-care (01) ==
LOC: EME 21:22
DX: M54.9 Dorsalgia, unspecified (principal); G89.29 Other chronic pain; Z98.890 Other specified postprocedural states; R07.9 Chest pain, unspecified; Z98.1 Arthrodesis status; F03.90 Unspecified dementia, unspecified severity, without behavioral disturbance, psychotic disturbance, mood disturbance, and anxiety; J44.9 Chronic obstructive pulmonary disease, unspecified; I10 Essential (primary) hypertension; M79.7 Fibromyalgia; B19.20 Unspecified viral hepatitis C without hepatic coma; M48.00 Spinal stenosis, site unspecified; I25.2 Old myocardial infarction; F32.9 Major depressive disorder, single episode, unspecified; F17.200 Nicotine dependence, unspecified, uncomplicated; Z86.73 Personal history of transient ischemic attack (TIA), and cerebral infarction without residual deficits; Z87.442 Personal history of urinary calculi; Z79.82 Long term (current) use of aspirin; Z88.5 Allergy status to narcotic agent
CPT/HCPCS: 99281; 99284

== ENCOUNTER 2017-10-18 07:28 | Inpatient (IN) | payer OTHER ==
[~2017-10-18] VITALS: Ht 185.4 cm; Wt 56.0 kg
[2017-10-18 08:42] LABS: HEMATOCRIT 34.1 % (38.0-50.0); HEMOGLOBIN 11.5 G/DL (12.5-16.6); MCH 31.7 PG (29.0-34.0); MCHC 33.7 G/DL (30.0-36.0); MCV 93.9 FL (86-99); PLATELET COUNT 334 K/uL (156-360); RBC DIS.WIDTH-CV 14.6 % (11.8-14.6); RBC DIS.WIDTH-SD 50.5 % (39-53); RED BLOOD COUNT 3.63 M/uL (4.00-5.50); WHITE BLOOD COUNT 11.9 K/uL (4.1-10.2)
[2017-10-18 08:54] LABS: CHLORIDE 110 mEq/L (99-109); POTASSIUM 3.6 mEq/L (3.7-5.4); SODIUM 143 mEq/L (136-147)
[2017-10-18 08:55] LABS: GLUCOSE 85 mg/dL (70-99)
[2017-10-18 08:59] LABS: GFR ESTIMATE (CALCULATED) > 59 mL/min/ (58.99-99999)
[2017-10-18 09:00] LABS: UREA NITROGEN (BUN) 11 mg/dL (9-23)
[2017-10-18 09:00] LABS: APPEARANCE CLEAR ((CLEAR)); BILIRUBIN NEGATIVE; BLOOD NEGATIVE; COLOR YELLOW ((YELLOW)); GLUCOSE (STRIP) NEGATIVE; KETONES NEGATIVE; LEUKOCYTES NEGATIVE; NITRITE NEGATIVE; PROTEIN (STRIP) NEGATIVE; SPECIFIC GRAVITY 1.014 (1.000-1.030); UROBILINOGEN 0.2 MG/DL (0.2-1.0)
[2017-10-18] MEDS ORDERED: OXYCODONE HCL10 MG PO (11:56)
[2017-10-18] MEDS ORDERED: TRAZODONE HCL50 MG PO (11:57)
[2017-10-18] MEDS ORDERED: ELAVIL25 MG PO (11:57)
[2017-10-18 12:49] LABS: HIGH-SENS C-REACTIVE PROTEIN 1.62 MG/DL (0.02-0.20)
[2017-10-18 13:55] VITALS: BP 138/66
[2017-10-18 16:35] VITALS: BP 137/72
[2017-10-18 19:40] VITALS: BP 115/56
[2017-10-19 00:07] VITALS: BP 120/56
[2017-10-19 07:29] VITALS: BP 109/56
[2017-10-19] MEDS ORDERED: ELIQUIS5 MG PO (11:07)
[2017-10-19 12:22] VITALS: BP 116/56
[2017-10-19 17:08] VITALS: BP 111/57
[2017-10-19 19:45] VITALS: BP 109/58
[2017-10-19 23:58] VITALS: BP 122/66
[2017-10-20 04:42] VITALS: BP 92/54
[2017-10-20 06:05] LABS: BASOPHIL (%) 0.8 % (0-1); BASOPHIL COUNT 0.1 K/uL (0-0.1); EOSINOPHIL (%) 2.8 % (0-5); EOSINOPHIL COUNT 0.2 K/uL (0-0.3); HEMATOCRIT 33.6 % (38.0-50.0); HEMOGLOBIN 10.9 G/DL (12.5-16.6); IMMATURE GRANULOCYTE (%) 0.3 % (0.0-0.7); LYMPHOCYTE (%) 28.2 % (15-42); LYMPHOCYTE COUNT 2.5 K/uL (1.0-2.8); MCH 30.8 PG (29.0-34.0); MCHC 32.4 G/DL (30.0-36.0); MCV 94.9 FL (86-99); MONOCYTE COUNT 0.8 K/uL (0-0.8); NEUTROPHIL (%) 58.9 % (45-76); NEUTROPHIL COUNT 5.1 K/uL (1.8-6.4); PLATELET COUNT 297 K/uL (156-360); RBC DIS.WIDTH-CV 14.9 % (11.8-14.6); RBC DIS.WIDTH-SD 51.8 % (39-53); RED BLOOD COUNT 3.54 M/uL (4.00-5.50); WHITE BLOOD COUNT 8.7 K/uL (4.1-10.2)
[2017-10-20 06:24] LABS: CHLORIDE 105 MEQ/L (99-109); CREATININE 0.9 MG/DL (0.6-1.3); GFR ESTIMATE (CALCULATED) > 59 mL/min/ (58.99-99999); GLUCOSE 93 mg/dL (70-99); POTASSIUM 3.9 MEQ/L (3.7-5.4); SODIUM 143 MEQ/L (136-147); UREA NITROGEN (BUN) 12 mg/dL (9-23)
[2017-10-20 07:43] VITALS: BP 102/55
[2017-10-20 11:26] VITALS: BP 121/59
[2017-10-20 15:57] VITALS: BP 111/63
[2017-10-20 19:30] VITALS: BP 132/78
[2017-10-21 00:20] VITALS: BP 120/58
[2017-10-21 04:14] VITALS: BP 120/58
[2017-10-21 08:00] VITALS: BP 125/61
[2017-10-21 12:07] VITALS: BP 106/55
[2017-10-21 15:53] VITALS: BP 113/71
[2017-10-21 21:05] VITALS: BP 118/60
[2017-10-22 00:27] VITALS: BP 100/56
[2017-10-22 03:43] VITALS: BP 101/61
[2017-10-22 05:12] LABS: HEMATOCRIT 32.7 % (38.0-50.0); HEMOGLOBIN 10.4 G/DL (12.5-16.6); MCH 30.7 PG (29.0-34.0); MCHC 31.8 G/DL (30.0-36.0); MCV 96.5 FL (86-99); PLATELET COUNT 302 K/uL (156-360); RBC DIS.WIDTH-CV 14.6 % (11.8-14.6); RBC DIS.WIDTH-SD 51.5 % (39-53); RED BLOOD COUNT 3.39 M/uL (4.00-5.50); WHITE BLOOD COUNT 6.8 K/uL (4.1-10.2)
[2017-10-22 05:49] LABS: CHLORIDE 105 MEQ/L (99-109); CREATININE 0.9 MG/DL (0.6-1.3); GFR ESTIMATE (CALCULATED) > 59 mL/min/ (58.99-99999); GLUCOSE 98 mg/dL (70-99); MAGNESIUM 1.9 mg/dl (1.3-2.7); POTASSIUM 4.4 MEQ/L (3.7-5.4); SODIUM 143 MEQ/L (136-147); UREA NITROGEN (BUN) 14 mg/dL (9-23)
[2017-10-22 05:50] LABS: VANCOMYCIN, TROUGH 14.7 MCG/ML (10-20)
[2017-10-22 08:00] VITALS: BP 105/57
[2017-10-22 12:51] VITALS: BP 107/66
[2017-10-22 16:25] VITALS: BP 110/57
[2017-10-22 19:30] VITALS: BP 122/78
[2017-10-23 01:00] VITALS: BP 128/68
[2017-10-23 03:45] LABS: C-REACTIVE PROTEIN 28.3 MG/L (0-10)
[2017-10-23 03:58] VITALS: BP 120/63
[2017-10-23 08:00] VITALS: BP 112/60
[2017-10-23 12:19] VITALS: BP 120/58
[2017-10-23 15:59] VITALS: BP 133/77
[2017-10-23 20:00] VITALS: BP 122/60
[2017-10-24] VITALS: BP 106/62
[2017-10-24 04:00] VITALS: BP 109/68
[2017-10-24 08:48] VITALS: BP 114/55
[2017-10-24] MEDS ORDERED: ROCEPHIN 2 GM VI2 GM IV (11:39)
[2017-10-24] MEDS ORDERED: ELIQUIS5 MG PO (11:40)
[2017-10-24 12:26] VITALS: BP 127/86
[2017-10-24] MEDS ORDERED: ASPIR 8181 M1 PO (13:36)
== END 2017-10-24 15:22 | disposition home or self-care (01) | DRG 862 ==
LOC: EME 07:28 → ENRESERVTM 11:39 → EDOF 11:39 → ENRESERV 11:39 → ENRESERVDT 11:39 → 4SOUTH 13:45 → ENPENDDIS 10-24 13:54 → 4SOUTH 10-24 15:22
PROVIDERS: Hospitalist; Internal Medicine; Nurse Practitioner Family; Physician Assistant Medical
PROC: 0J970ZX Drainage of Back Subcutaneous Tissue and Fascia, Open Approach, Diagnostic (ICD-10-PCS; principal; 2017-10-18)
DX: T81.4XXA Infection following a procedure, initial encounter (principal); L03.312 Cellulitis of back [any part except buttock and flank]; L03.116 Cellulitis of left lower limb; L02.212 Cutaneous abscess of back [any part, except buttock and flank]; I50.22 Chronic systolic (congestive) heart failure; I11.0 Hypertensive heart disease with heart failure; I26.99 Other pulmonary embolism without acute cor pulmonale; F17.200 Nicotine dependence, unspecified, uncomplicated; J44.9 Chronic obstructive pulmonary disease, unspecified; G89.4 Chronic pain syndrome; R20.2 Paresthesia of skin; F32.9 Major depressive disorder, single episode, unspecified; I25.5 Ischemic cardiomyopathy; M54.2 Cervicalgia; F01.50 Vascular dementia, unspecified severity, without behavioral disturbance, psychotic disturbance, mood disturbance, and anxiety; M25.552 Pain in left hip; B19.20 Unspecified viral hepatitis C without hepatic coma; F11.20 Opioid dependence, uncomplicated; Z86.73 Personal history of transient ischemic attack (TIA), and cerebral infarction without residual deficits; Z98.1 Arthrodesis status; Z91.19 Patient's noncompliance with other medical treatment and regimen; Z87.442 Personal history of urinary calculi; Z95.5 Presence of coronary angioplasty implant and graft; Z95.810 Presence of automatic (implantable) cardiac defibrillator; Z86.14 Personal history of Methicillin resistant Staphylococcus aureus infection; Z79.82 Long term (current) use of aspirin; Z68.1 Body mass index [BMI] 19.9 or less, adult; Z79.01 Long term (current) use of anticoagulants; Z79.899 Other long term (current) drug therapy; Z86.711 Personal history of pulmonary embolism; I25.2 Old myocardial infarction; R31.9 Hematuria, unspecified; B95.61 Methicillin susceptible Staphylococcus aureus infection as the cause of diseases classified elsewhere
CPT/HCPCS: 71046; 72170; 73502; 74177; 80048; 80202; 81003; 82565; 83735; 84484; 85025; 85027; 85651; 86140; 86141; 87040; 87070; 87075; 87077; 87147; 87186; 87205; 87641; 93005; 94799; 97530 GP; 99281; 99284; J0690; J1170; J3010; J3370; J7030; J7050

== ENCOUNTER 2017-10-27 10:30 | Emergency (ER) | payer OTHER ==
[~2017-10-27] VITALS: Ht 185.4 cm; Wt 62.0 kg
[~2017-10-27 10:30] MED LIST changes: +ROCEPHIN 2 GM VI2 GM IV; +TRAZODONE HCL50 MG PO
[2017-10-27 11:13] LABS: BASOPHIL (%) 1.2 % (0-1); BASOPHIL COUNT 0.1 K/uL (0-0.1); EOSINOPHIL (%) 4.4 % (0-5); EOSINOPHIL COUNT 0.4 K/uL (0-0.3); HEMOGLOBIN 11.1 G/DL (12.5-16.6); IMMATURE GRANULOCYTE (%) 0.2 % (0.0-0.7); LYMPHOCYTE (%) 25.9 % (15-42); LYMPHOCYTE COUNT 2.4 K/uL (1.0-2.8); MCH 31.7 PG (29.0-34.0); MCHC 33.6 G/DL (30.0-36.0); MCV 94.3 FL (86-99); MONOCYTE (%) 8.5 % (3-12); MONOCYTE COUNT 0.8 K/uL (0-0.8); NEUTROPHIL (%) 59.8 % (45-76); NEUTROPHIL COUNT 5.5 K/uL (1.8-6.4); PLATELET COUNT 276 K/uL (156-360); RBC DIS.WIDTH-CV 14.3 % (11.8-14.6); RBC DIS.WIDTH-SD 49.1 % (39-53); WHITE BLOOD COUNT 9.2 K/uL (4.1-10.2)
[2017-10-27 11:44] LABS: CHLORIDE 100 MEQ/L (99-109); POTASSIUM 3.8 MEQ/L (3.7-5.4); SODIUM 139 MEQ/L (136-147); TROP-I INTERPRETATION NEGATIVE; TROPONIN-I < 0.01 ng/mL (0.0-0.30)
[2017-10-27 11:53] LABS: GFR ESTIMATE (CALCULATED) > 59 mL/min/ (58.99-99999); GLUCOSE 114 mg/dL (70-99); UREA NITROGEN (BUN) 14 mg/dL (9-23)
[2017-10-27 12:08] LABS: APPEARANCE SL.HAZY ((CLEAR)); BILIRUBIN NEGATIVE; BLOOD LARGE; COLOR YELLOW ((YELLOW)); GLUCOSE (STRIP) NEGATIVE; KETONES NEGATIVE; LEUKOCYTES TRACE; NITRITE NEGATIVE; PROTEIN (STRIP) 30; SPECIFIC GRAVITY 1.014 (1.000-1.030); UROBILINOGEN 0.2 MG/DL (0.2-1.0)
[2017-10-27 12:31] LABS: RED BLOOD CELLS TNTC /HPF (0-5); WHITE BLOOD CELLS RARE /HPF (0-5)
[2017-10-27 12:32] LABS: BACTERIA 1+ /HPF; EPITHELIAL CELLS RARE /HPF; MUCUS NONE SEEN /LPF; UCUL ADDED? YES
[2017-10-27] MEDS ORDERED: FLEXERIL10 MG PO (13:43)
[2017-10-27 14:19] VITALS: BP 135/72
[2017-10-28] MEDS ORDERED: ELIQUIS5 MG PO (15:07)
[2017-10-28] MEDS ORDERED: LO-DOSE ASPIRIN81 M1 PO (15:08)
[2017-10-28] MEDS ORDERED: CEFTRIAXONE2 G1 IV (15:15)
== END 2017-10-27 14:25 | disposition home or self-care (01) ==
LOC: EME 10:30
PROVIDERS: Emergency Medicine
DX: R07.89 Other chest pain (principal); G89.29 Other chronic pain; M86.9 Osteomyelitis, unspecified; R51 Headache; R42 Dizziness and giddiness; M79.604 Pain in right leg; M79.605 Pain in left leg; J44.9 Chronic obstructive pulmonary disease, unspecified; I45.10 Unspecified right bundle-branch block; I25.2 Old myocardial infarction; I11.0 Hypertensive heart disease with heart failure; I50.9 Heart failure, unspecified; Z95.810 Presence of automatic (implantable) cardiac defibrillator; Z86.73 Personal history of transient ischemic attack (TIA), and cerebral infarction without residual deficits; Z86.718 Personal history of other venous thrombosis and embolism; Z79.891 Long term (current) use of opiate analgesic; F17.200 Nicotine dependence, unspecified, uncomplicated
CPT/HCPCS: 71045; 80048; 81003; 84484; 85025; 87086; 93005; 99281; 99285; J0696

== ENCOUNTER 2017-10-28 13:21 | Observation (INO) | payer OTHER ==
[~2017-10-28] VITALS: Ht 185.4 cm; Wt 64.6 kg
[2017-10-28 14:10] LABS: HEMATOCRIT 35.7 % (38.0-50.0); MCH 31.4 PG (29.0-34.0); MCHC 33.6 G/DL (30.0-36.0); MCV 93.5 FL (86-99); PLATELET COUNT 246 K/uL (156-360); RBC DIS.WIDTH-CV 14.1 % (11.8-14.6); RBC DIS.WIDTH-SD 47.9 % (39-53); RED BLOOD COUNT 3.82 M/uL (4.00-5.50); WHITE BLOOD COUNT 9.8 K/uL (4.1-10.2)
[2017-10-28 14:39] LABS: ALBUMIN 3.8 G/DL (3.2-4.8); CHLORIDE 100 MEQ/L (99-109); SODIUM 136 MEQ/L (136-147); TOTAL BILIRUBIN 0.5 MG/DL (0.0-1.0)
[2017-10-28 14:45] LABS: ALKALINE PHOSPHATASE 90 IU/L (3-129); ALT (GPT) 10 IU/L (3-49); AST (GOT) 20 IU/L (2-34); CREATININE 0.9 MG/DL (0.6-1.3); GFR ESTIMATE (CALCULATED) > 59 mL/min/ (58.99-99999); GLUCOSE 108 mg/dL (70-99); TOTAL PROTEIN 6.7 G/DL (6.4-8.3); UREA NITROGEN (BUN) 9 mg/dL (9-23)
[2017-10-28] MEDS ORDERED: ELIQUIS5 MG PO (15:07)
[2017-10-28] MEDS ORDERED: LO-DOSE ASPIRIN81 M1 PO (15:08)
[2017-10-28] MEDS ORDERED: CEFTRIAXONE2 G1 IV (15:15)
[2017-10-28 22:34] VITALS: BP 124/64
[2017-10-29 04:02] VITALS: BP 105/56
[2017-10-29 07:35] VITALS: BP 120/64
[2017-10-29 15:21] VITALS: BP 100/57
[2017-10-29 20:24] VITALS: BP 109/66
[2017-10-30 00:13] VITALS: BP 104/57
[2017-10-30 04:19] VITALS: BP 104/57
[2017-10-30 05:32] LABS: HEMATOCRIT 33.1 % (38.0-50.0); HEMOGLOBIN 10.7 G/DL (12.5-16.6); MCH 30.9 PG (29.0-34.0); MCHC 32.3 G/DL (30.0-36.0); MCV 95.7 FL (86-99); PLATELET COUNT 209 K/uL (156-360); RBC DIS.WIDTH-CV 14.5 % (11.8-14.6); RBC DIS.WIDTH-SD 49.8 % (39-53); RED BLOOD COUNT 3.46 M/uL (4.00-5.50); WHITE BLOOD COUNT 6.7 K/uL (4.1-10.2)
[2017-10-30 06:02] LABS: CHLORIDE 101 MEQ/L (99-109); CREATININE 0.9 MG/DL (0.6-1.3); GFR ESTIMATE (CALCULATED) > 59 mL/min/ (58.99-99999); GLUCOSE 103 mg/dL (70-99); SODIUM 140 MEQ/L (136-147); UREA NITROGEN (BUN) 9 mg/dL (9-23)
[2017-10-30 08:05] VITALS: BP 101/73
[2017-10-30] MEDS ORDERED: GABAPENTIN100 MG PO (08:13)
[2017-10-30 15:46] VITALS: BP 105/78
== END 2017-10-30 17:49 ==
LOC: EME 13:21 → EDOF 20:21 → 4SOUTH 20:21 → EDOF 20:21 → 4SOUTH 22:23
PROVIDERS: Internal Medicine; Nurse Practitioner Family
DX: G89.4 Chronic pain syndrome (principal); M54.2 Cervicalgia; R42 Dizziness and giddiness; R51 Headache; R50.9 Fever, unspecified; Z98.1 Arthrodesis status; T81.4XXA Infection following a procedure, initial encounter; B95.61 Methicillin susceptible Staphylococcus aureus infection as the cause of diseases classified elsewhere; Z95.810 Presence of automatic (implantable) cardiac defibrillator; F17.200 Nicotine dependence, unspecified, uncomplicated; I25.5 Ischemic cardiomyopathy; B18.2 Chronic viral hepatitis C; F31.9 Bipolar disorder, unspecified; R29.6 Repeated falls; F11.20 Opioid dependence, uncomplicated; I11.0 Hypertensive heart disease with heart failure; I50.22 Chronic systolic (congestive) heart failure; I47.2 Ventricular tachycardia; Z86.73 Personal history of transient ischemic attack (TIA), and cerebral infarction without residual deficits; J44.9 Chronic obstructive pulmonary disease, unspecified; Z86.711 Personal history of pulmonary embolism; Z79.01 Long term (current) use of anticoagulants; R91.8 Other nonspecific abnormal finding of lung field; Z79.82 Long term (current) use of aspirin; G47.00 Insomnia, unspecified
CPT/HCPCS: 70491; 80048; 80053; 85027; 87641; 94799; 99281; 99285; G0378; G8978 GP CJ; G8979 GP CI; G8980 CJ; G8987 GO CJ; G8988 CI; G8989 CJ; J0696; J1170

== ENCOUNTER 2017-11-02 09:42 | Observation (INO) | payer OTHER ==
[~2017-11-02] VITALS: Ht 185.4 cm; Wt 60.1 kg
[~2017-11-02 09:42] MED LIST changes: +CEFTRIAXONE2 G1 IV
[2017-11-02 10:51] LABS: BASOPHIL (%) 1.1 % (0-1); BASOPHIL COUNT 0.1 K/uL (0-0.1); EOSINOPHIL (%) 3.1 % (0-5); EOSINOPHIL COUNT 0.2 K/uL (0-0.3); HEMATOCRIT 35.2 % (38.0-50.0); HEMOGLOBIN 11.5 G/DL (12.5-16.6); IMMATURE GRANULOCYTE (%) 0.3 % (0.0-0.7); LYMPHOCYTE (%) 27.9 % (15-42); LYMPHOCYTE COUNT 1.8 K/uL (1.0-2.8); MCH 31.2 PG (29.0-34.0); MCHC 32.7 G/DL (30.0-36.0); MCV 95.4 FL (86-99); MONOCYTE (%) 6.7 % (3-12); MONOCYTE COUNT 0.4 K/uL (0-0.8); NEUTROPHIL (%) 60.9 % (45-76); NEUTROPHIL COUNT 3.9 K/uL (1.8-6.4); PLATELET COUNT 209 K/uL (156-360); RBC DIS.WIDTH-CV 14.2 % (11.8-14.6); RBC DIS.WIDTH-SD 49.3 % (39-53); RED BLOOD COUNT 3.69 M/uL (4.00-5.50); WHITE BLOOD COUNT 6.5 K/uL (4.1-10.2)
[2017-11-02 10:58] LABS: INTER. NORMALIZED RATIO 1.1
[2017-11-02 11:03] LABS: CHLORIDE 106 mEq/L (99-109); POTASSIUM 3.8 mEq/L (3.7-5.4); SODIUM 144 mEq/L (136-147)
[2017-11-02 11:05] LABS: GLUCOSE 105 mg/dL (70-99)
[2017-11-02 11:07] LABS: PTT 27.8 SEC (25-37)
[2017-11-02 11:08] LABS: GFR ESTIMATE (CALCULATED) > 59 mL/min/ (58.99-99999)
[2017-11-02 11:09] LABS: UREA NITROGEN (BUN) 7 mg/dL (9-23)
[2017-11-02 11:18] LABS: TROP-I INTERPRETATION NEGATIVE; TROPONIN-I < 0.01 ng/mL (0.0-0.30)
[2017-11-02] MEDS ORDERED: CYCLOBENZAPRINE10 MG PO (12:19)
[2017-11-02 13:46] VITALS: BP 150/64
[2017-11-02 15:36] LABS: TROP-I INTERPRETATION NEGATIVE; TROPONIN-I < 0.01 ng/mL (0.0-0.30)
[2017-11-02 19:56] VITALS: BP 112/69
[2017-11-02 21:15] LABS: TROP-I INTERPRETATION NEGATIVE; TROPONIN-I < 0.01 ng/mL (0.0-0.30)
[2017-11-03 00:01] VITALS: BP 116/66
[2017-11-03 03:31] VITALS: BP 130/72
[2017-11-03 05:46] LABS: HEMATOCRIT 35.5 % (38.0-50.0); HEMOGLOBIN 11.3 G/DL (12.5-16.6); MCH 30.5 PG (29.0-34.0); MCHC 31.8 G/DL (30.0-36.0); MCV 95.9 FL (86-99); PLATELET COUNT 202 K/uL (156-360); RBC DIS.WIDTH-CV 14.3 % (11.8-14.6); RBC DIS.WIDTH-SD 50.6 % (39-53); WHITE BLOOD COUNT 5.7 K/uL (4.1-10.2)
[2017-11-03 06:15] LABS: CHLORIDE 106 MEQ/L (99-109); GFR ESTIMATE (CALCULATED) > 59 mL/min/ (58.99-99999); GLUCOSE 95 mg/dL (70-99); POTASSIUM 3.5 MEQ/L (3.7-5.4); SODIUM 142 MEQ/L (136-147); UREA NITROGEN (BUN) 11 mg/dL (9-23)
== END 2017-11-03 06:55 | disposition left against medical advice (07) ==
LOC: EME 09:42 → EDOF 11:51 → ENRESERV 11:55 → 4SOUTH 13:44
PROVIDERS: Emergency Medicine; Hospitalist
DX: R07.89 Other chest pain (principal); I25.10 Atherosclerotic heart disease of native coronary artery without angina pectoris; J44.9 Chronic obstructive pulmonary disease, unspecified; I25.5 Ischemic cardiomyopathy; I47.2 Ventricular tachycardia; Z95.810 Presence of automatic (implantable) cardiac defibrillator; Z91.19 Patient's noncompliance with other medical treatment and regimen; Z95.5 Presence of coronary angioplasty implant and graft; I11.0 Hypertensive heart disease with heart failure; I50.22 Chronic systolic (congestive) heart failure; G89.4 Chronic pain syndrome; F11.20 Opioid dependence, uncomplicated; B19.20 Unspecified viral hepatitis C without hepatic coma; F31.9 Bipolar disorder, unspecified; Z86.73 Personal history of transient ischemic attack (TIA), and cerebral infarction without residual deficits; F17.200 Nicotine dependence, unspecified, uncomplicated; Z87.442 Personal history of urinary calculi; Z86.711 Personal history of pulmonary embolism; Z86.14 Personal history of Methicillin resistant Staphylococcus aureus infection; Z98.1 Arthrodesis status; Z88.8 Allergy status to other drugs, medicaments and biological substances; M86.9 Osteomyelitis, unspecified; Z79.01 Long term (current) use of anticoagulants
CPT/HCPCS: 71045; 80048; 84484; 85025; 85027; 85379; 85610; 85730; 93005; 99281; 99284; G0378; J0696; J2270; S0028

== ENCOUNTER 2017-11-08 00:48 | Observation (INO) | payer OTHER ==
[~2017-11-08] VITALS: Ht 185.4 cm; Wt 61.4 kg
[~2017-11-08 00:48] MED LIST changes: +CYCLOBENZAPRINE10 MG PO
[2017-11-08 01:36] LABS: BASOPHIL (%) 0.7 % (0-1); BASOPHIL COUNT 0.1 K/uL (0-0.1); EOSINOPHIL (%) 2.2 % (0-5); EOSINOPHIL COUNT 0.2 K/uL (0-0.3); HEMATOCRIT 32.9 % (38.0-50.0); HEMOGLOBIN 10.8 G/DL (12.5-16.6); IMMATURE GRANULOCYTE (%) 0.4 % (0.0-0.7); LYMPHOCYTE (%) 21.9 % (15-42); LYMPHOCYTE COUNT 1.7 K/uL (1.0-2.8); MCH 31.4 PG (29.0-34.0); MCHC 32.8 G/DL (30.0-36.0); MCV 95.6 FL (86-99); MONOCYTE (%) 8.3 % (3-12); MONOCYTE COUNT 0.6 K/uL (0-0.8); NEUTROPHIL (%) 66.5 % (45-76); NEUTROPHIL COUNT 5.1 K/uL (1.8-6.4); PLATELET COUNT 205 K/uL (156-360); RBC DIS.WIDTH-CV 14.4 % (11.8-14.6); RBC DIS.WIDTH-SD 50.4 % (39-53); RED BLOOD COUNT 3.44 M/uL (4.00-5.50); WHITE BLOOD COUNT 7.6 K/uL (4.1-10.2)
[2017-11-08 01:44] LABS: ALBUMIN 3.9 g/dL (3.2-4.8)
[2017-11-08 01:45] LABS: CHLORIDE 104 mEq/L (99-109); POTASSIUM 3.6 mEq/L (3.7-5.4); SODIUM 139 mEq/L (136-147)
[2017-11-08 01:47] LABS: GLUCOSE 92 mg/dL (70-99); TOTAL PROTEIN 6.7 g/dL (6.4-8.3)
[2017-11-08 01:49] LABS: TOTAL BILIRUBIN 0.4 mg/dL (0.0-1.0)
[2017-11-08 01:50] LABS: ALKALINE PHOSPHATASE 99 IU/L (3-129)
[2017-11-08 01:51] LABS: CREATININE 1.4 mg/dL (0.6-1.3); GFR ESTIMATE (CALCULATED) 55 mL/min/ (58.99-99999)
[2017-11-08 01:52] LABS: AST (GOT) 33 IU/L (2-34); UREA NITROGEN (BUN) 18 mg/dL (9-23)
[2017-11-08 01:54] LABS: ALT (GPT) 30 IU/L (3-49)
[2017-11-08 02:01] LABS: TROP-I INTERPRETATION NEGATIVE; TROPONIN-I < 0.01 ng/mL (0.0-0.30)
[2017-11-08 06:25] VITALS: BP 101/58
[2017-11-08 07:43] LABS: BENZODIAZEPINES, URINE SCREEN Negative (200 ng/mL)
[2017-11-08 08:22] VITALS: BP 114/57
[2017-11-08 09:13] LABS: TROP-I INTERPRETATION NEGATIVE; TROPONIN-I < 0.01 ng/mL (0.0-0.30)
[2017-11-08 13:01] VITALS: BP 121/65
[2017-11-08] MEDS ORDERED: ELIQUIS5 MG PO (13:57)
[2017-11-08 14:53] LABS: TROP-I INTERPRETATION NEGATIVE; TROPONIN-I < 0.01 ng/mL (0.0-0.30)
[2017-11-08] MEDS ORDERED: DURICEF1 GM PO (15:03)
== END 2017-11-08 16:25 | disposition home or self-care (01) ==
LOC: EME → EDBD 00:48 → EME 00:48 → EDOF 05:07 → 4SOUTH 05:50
PROVIDERS: Emergency Medicine; Physician Assistant
DX: I95.1 Orthostatic hypotension (principal); M86.9 Osteomyelitis, unspecified; R55 Syncope and collapse; I25.2 Old myocardial infarction; I50.9 Heart failure, unspecified; I11.0 Hypertensive heart disease with heart failure; M79.7 Fibromyalgia; J44.9 Chronic obstructive pulmonary disease, unspecified; F03.90 Unspecified dementia, unspecified severity, without behavioral disturbance, psychotic disturbance, mood disturbance, and anxiety; G43.909 Migraine, unspecified, not intractable, without status migrainosus; Z86.73 Personal history of transient ischemic attack (TIA), and cerebral infarction without residual deficits; Z95.1 Presence of aortocoronary bypass graft; Z86.14 Personal history of Methicillin resistant Staphylococcus aureus infection; Z79.82 Long term (current) use of aspirin; Z86.711 Personal history of pulmonary embolism; F11.20 Opioid dependence, uncomplicated; I25.5 Ischemic cardiomyopathy; G89.29 Other chronic pain; F31.9 Bipolar disorder, unspecified; Z95.810 Presence of automatic (implantable) cardiac defibrillator; M54.2 Cervicalgia; Z98.1 Arthrodesis status; R91.1 Solitary pulmonary nodule; E86.0 Dehydration; F17.200 Nicotine dependence, unspecified, uncomplicated; Z79.01 Long term (current) use of anticoagulants
CPT/HCPCS: 70450; 71046; 71275; 72125; 80053; 80306 90; 83605; 84484; 85025; 87641; 93005; 99281; 99285; G0378; J0696; J7030; J7040

== ENCOUNTER 2017-11-13 17:28 | Emergency (ER) | payer OTHER ==
[~2017-11-13] VITALS: Ht 185.4 cm; Wt 80.0 kg
[~2017-11-13 17:28] MED LIST changes: +DURICEF1 GM PO
[2017-11-13 18:05] LABS: HEMATOCRIT 33.5 % (38.0-50.0); MCH 31.3 PG (29.0-34.0); MCHC 32.8 G/DL (30.0-36.0); MCV 95.2 FL (86-99); PLATELET COUNT 226 K/uL (156-360); RBC DIS.WIDTH-CV 14.5 % (11.8-14.6); RBC DIS.WIDTH-SD 50.4 % (39-53); RED BLOOD COUNT 3.52 M/uL (4.00-5.50); WHITE BLOOD COUNT 7.1 K/uL (4.1-10.2)
[2017-11-13 18:19] LABS: CHLORIDE 107 mEq/L (99-109); POTASSIUM 3.9 mEq/L (3.7-5.4); SODIUM 142 mEq/L (136-147)
[2017-11-13 18:21] LABS: GLUCOSE 96 mg/dL (70-99)
[2017-11-13 18:25] LABS: GFR ESTIMATE (CALCULATED) > 59 mL/min/ (58.99-99999)
[2017-11-13 18:26] LABS: UREA NITROGEN (BUN) 5 mg/dL (9-23)
[2017-11-13 18:27] LABS: CREATININE 0.7 mg/dL (0.6-1.3)
[2017-11-13 18:29] LABS: TROP-I INTERPRETATION NEGATIVE; TROPONIN-I < 0.01 ng/mL (0.0-0.30)
[2017-11-13] MEDS ORDERED: GABAPENTIN100 MG PO (19:10)
[2017-11-13] MEDS ORDERED: OXYCODONE HCL15 MG PO (19:16)
[2017-11-13] MEDS ORDERED: CARISOPRODOL350 MG PO (19:17)
[2017-11-13] MEDS ORDERED: PROAIR HFA8.5 GM IH (19:18)
[2017-11-13 20:32] LABS: TROP-I INTERPRETATION NEGATIVE; TROPONIN-I < 0.01 ng/mL (0.0-0.30)
[2017-11-13 22:05] VITALS: BP 137/87
== END 2017-11-13 22:08 | disposition home or self-care (01) ==
LOC: EME 17:28
PROVIDERS: Emergency Medicine
DX: R07.89 Other chest pain (principal); I10 Essential (primary) hypertension; I50.9 Heart failure, unspecified; J43.9 Emphysema, unspecified; M79.7 Fibromyalgia; J45.909 Unspecified asthma, uncomplicated; B19.20 Unspecified viral hepatitis C without hepatic coma; F03.90 Unspecified dementia, unspecified severity, without behavioral disturbance, psychotic disturbance, mood disturbance, and anxiety; G43.909 Migraine, unspecified, not intractable, without status migrainosus; F32.9 Major depressive disorder, single episode, unspecified; I25.2 Old myocardial infarction; F17.200 Nicotine dependence, unspecified, uncomplicated; Z79.82 Long term (current) use of aspirin; Z95.1 Presence of aortocoronary bypass graft; Z86.14 Personal history of Methicillin resistant Staphylococcus aureus infection; Z86.73 Personal history of transient ischemic attack (TIA), and cerebral infarction without residual deficits; Z87.442 Personal history of urinary calculi; Z85.9 Personal history of malignant neoplasm, unspecified; Z87.19 Personal history of other diseases of the digestive system; Z88.5 Allergy status to narcotic agent
CPT/HCPCS: 71046; 80048; 84484; 85027; 93005; 99281; 99285